=== PATIENT | male | born 2000 | race Caucasian/White ===

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

== ENCOUNTER → 2019-06-01 | Outpatient (CLI) | payer OTHER ==
--- NOTE | 2019-06-01 19:34 | REP ---
Chest x-ray: Three views. History: Cough . Comparison study: No comparison . Findings: The lungs are well inflated and free of infiltrate. The pleural angles are sharp. The heart size is normal. Pulmonary vasculature is not increased. No significant bony abnormality is seen. Impression: Negative chest x-ray. Electronically Signed by Enio Membreno MD 06/01/2019 07:26 P
== END ==
LOC: M LRY 17:40
PROVIDERS: ATTEND Physician Assistant
DX: R05 Cough (principal)

== ENCOUNTER 2020-08-05 08:22 | Emergency (ER) | payer OTHER ==
[~2020-08-05] VITALS: Ht 180.3 cm; Wt 92.2 kg
--- OUTSIDE RECORDS SUMMARY | 2020-08-05 08:27 | CCD ---
Author Author [facility] Organization [facility] Address Unknown Phone Unavailable Care Team Providers Care Photograph Tinter Name Role Phone TURRIN, JOSEPH Unavailable Unavailable TURRIN, JOSEPH Unavailable Unavailable TURRIN, JOSEPH Unavailable Unavailable TURRIN, JOSEPH Unavailable Unavailable KENISHA MARQUEZ Unavailable Unavailable RIVERA, 0000{ Unavailable Unavailable KATHY, B ISABEL CASSIDY Unavailable Unavailable KATHY, B ISABEL CASSIDY Unavailable Unavailable KATHY, B ISABEL CASSIDY Unavailable Unavailable KATHY, B ISABEL CASSIDY Unavailable Unavailable KATHY, B ISABEL CASSIDY Unavailable Unavailable KATHY, B ISABEL CASSIDY Unavailable Unavailable KATHY, B ISABEL CASSIDY Unavailable Unavailable KATHY, B ISABEL CASSIDY Unavailable Unavailable KATHY, B ISABEL CASSIDY Unavailable Unavailable KATHY, B ISABEL CASSIDY Unavailable Unavailable KATHY, B ISABEL CASSIDY Unavailable Unavailable KATHY, B ISABEL CASSIYD Unavailable Unavailable KATHY, B ISABEL CASSIDY Unavailable Unavailable KATHY, B ISABEL CASSIDY Unavailable Unavailable KATHY, B ISABEL CASSIDY Unavailable Unavailable KATHY, B ISABEL CASSIDY Unavailable Unavailable KATHY, B ISABEL CASSIDY Unavailable Unavailable KATHY, B ISABEL CASSIDY Unavailable Unavailable KATHY, B ISABEL CASSIDY Unavailable Unavailable KATHY, B ISABEL CASSIDY Unavailable Unavailable KATHY, B ISABEL CASSIDY Unavailable Unavailable KATHY, B ISABEL CASSIDY Unavailable Unavailable KATHY, B ISABEL CASSIDY Unavailable Unavailable KATHY, B ISABEL CASSIDY Unavailable Unavailable KATHY, B ISABEL CASSIDY Unavailable Unavailable KATHY, B ISABEL CASSIDY Unavailable Unavailable KATHY B ISABEL CASSIDY Unavailable Unavailable KATHY B ISABEL CASSIDY Unavailable Unavailable KATHY, B ISABEL CASSIDY Unavailable Unavailable KATHY, B ISABEL CASSIDY Unavailable Unavailable KATHY, B ISABEL CASSIDY Unavailable Unavailable KATHY, B ISABEL CASSIDY Unavailable Unavailable KATHY, B ISABEL CASSIDY Unavailable Unavailable KATHY, B ISABEL CASSIDY Unavailable Unavailable KATHY, B ISABEL CASSIDY Unavailable Unavailable KATHY B ISABEL CASSIDY Unavailable Unavailable KATHY, B ISABEL CASSIDY Unavailable Unavailable KATHY, B ISABEL MD Unavailable Unavailable KATHY, B ISABEL MD Unavailable Unavailable KATHY, B ISABEL MD Unavailable Unavailable KATHY, B ISABEL MD Unavailable Unavailable KATHY, B ISABEL MD Unavailable Unavailable KATHY, B ISABEL MD Unavailable Unavailable KATHY, B ISABEL MD Unavailable Unavailable KATHY, B ISABEL MD Unavailable Unavailable KATHY, B ISABEL MD Unavailable Unavailable KATHY, B ISABEL MD Unavailable Unavailable KATHY, B ISABEL MD Unavailable Unavailable KATHY, B ISABEL MD Unavailable Unavailable KATHY, B ISABEL MD Unavailable Unavailable KATHY, B ISABEL MD Unavailable Unavailable KATHY, B ISABEL MD Unavailable Unavailable KATHY, B ISABEL MD Unavailable Unavailable KATHY, B ISABEL MD Unavailable Unavailable KATHY, B ISABEL MD Unavailable Unavailable KATHY, B ISABEL MD Unavailable Unavailable KATHY, B ISABEL MD Unavailable Unavailable KATHY, B ISABEL MD Unavailable Unavailable KATHY, B ISABEL MD Unavailable Unavailable KATHY, B ISABEL MD Unavailable Unavailable KATHY, B ISABEL MD Unavailable Unavailable KATHY, B ISABEL MD Unavailable Unavailable KATHY, B ISABEL MD Unavailable Unavailable KATHY, B ISABEL MD Unavailable Unavailable Re-disclosure Warning The records that you are about to access may contain information from federally-assisted alcohol or drug abuse programs. If such information is present, then the following federally mandated warning applies: This information has been disclosed to you from records protected by federal confidentiality rules (42 CFR part 2). The federal rules prohibit you from making any further disclosure of this information unless further disclosure is expressly permitted by the written consent of the person to whom it pertains or as otherwise permitted by 42 CFR part 2. A general authorization for the release of medical or other information is NOT sufficient for this purpose. The Federal rules restrict any use of the information to criminally investigate or prosecute any alcohol or drug abuse patient.The records that you are about to access may contain highly sensitive health information, the redisclosure of which is protected by Article 27-F of the [facility] Public Health law. If you continue you may have access to information: Regarding HIV / AIDS; Provided by facilities licensed or operated by the [facility] Office of Mental Health; or Provided by the [facility] Office for People With Developmental Disabilities. If such information is present, then the following [facility] mandated warning applies: This information has been disclosed to you from confidential records which are protected by state law. State law prohibits you from making any further disclosure of this information without the specific written consent of the person to whom it pertains, or as otherwise permitted by law. Any unauthorized further disclosure in violation of state law may result in a fine or retirement sentence or both. A general authorization for the release of medical or other information is NOT sufficient authorization for further disc losure. Encounters Encounter Providers Location Date Indications Data Source(s ) ( in Healthcare facility) Attender: NICOLAS CHAVEZ MDAdmitter: ISABEL CHAVEZ MD 04/29/2020 05:48:00 AM EST - 04/29/2020 06:06:0 0 PM [facility] Outpatient Attender: ISABEL CHAVEZ MDAdmitter: ISABEL Ruiz MD 04/29/2020 05:48:00 AM EST - 04/29/2020 06:06:00 PM EST LABRAL TEAR LEFT HIP M24.152 [facility] LABRAL TEAR LEFT HIP M24.152 Patient discharged. Outpatient Attender: ISABEL CHAVEZ MD 04/29/2020 05:48:00 AM [facility] Outpatient Attender: 0000{ [place] 04/24/2020 09:12:00 AM E [facility] Outpatient Attender: ISABEL CHAVEZ MD 04/24/2020 09:12:00 AM EST LABRAL TEAR [facility] LABRAL TEAR Outpatient [facility] [place] 04/24/2020 08:50:0 0 AM EST [facility] Outpatient Attender: GLENDY MARQUEZ 020 01:26:00 PM EDT - 12/16/2019 02:26:00 PM EDT [facility] Outpatient 09/04/2019 10:05:00 PM EDT [facility] Emergency Attender: JOSEPH MIGUEL 2019 09:32:00 PM EDT - 09/05/2019 01:44:00 AM EDT [facility] Patient discharged. Insurance Providers Payer name Policy type / Coverage type Policy ID Covered republican ID Covered republican's relationship to kemp Policy Kemp Plan Information [facility] ACTIVE DUTY [id number] SP [id number] [facility] [id number] S [id number] [facility] HUMANA - O/P [id number] 18 [id number] ANSI-Commercial [id number] SELF PAY ONLY [id number] ACTIVE DUTY [id number] Problems, Conditions, and Diagnoses Code Display Name Description Problem Type Effective Dates Data Source(s) L17525 Pain in left hip Pain in left hip Diagnosis 12/16/2019 01 :26:00 PM EDT [facility] [id number] Nicotine dependence, cigarettes, uncompl icated Nicotine dependence, cigarettes, uncomplicated Diagnosis 09/04/2019 09:32:00 PM EDT [facility] A0811 Acute gastroenteropathy due to [place] a gent Acute gastroenteropathy due to [place] agent Diagnosis 09/04/2019 09:32:00 PM EDT [facility] R197 Diarrhea, unspecified Diarrhea, unspecified Diagnosis 09/04/2019 09:32:00 PM EDT [facility] Results ID Date Data Source [id number] 04/30/2020 07:41:[address] [address] NAME: VESTA PERKINS OF : 2000REPORT: OPERATIONPATIENT NUMBER: [id number] STATUS: OF ADMISSION:DATE OF DISCHARGE:ROOM:DATE OF PROCEDURE: 04/29/2020PREOPERATIVE DIAGNOSIS: Left hip labral tear with femoroacetabularimpingement.POSTOPERATIVE DIAGNOSIS: Left hip labral tear with femoroacetabularimpingement.PROCEDURE PERFORMED: Arthroscopy with labral repair and femoral neckosteoplasty.SURGEON: Isabel Chavez MDASSISTANT: None.ANESTHESIA: General endotracheal tube with 1 percent lidocaine and 0.25percent Marcaine local.SPECIMENS: None.TRACTION TIME: 72 minutes.ESTIMATED BLOOD LOSS: Minimal.FLUIDS GIVEN: Crystalloid.BLOOD PRODUCTS: None.DRAINS: Green catheter.GRAFTS: None.IMPLANTS: Arthrex knotless anchors x2.COMPLICATIONS: None.FINDINGS:1. Exam under anesthesia, left hip, limited motion with 120 degrees forward flexion, 20 degrees internal rotation, 6 degrees of external rotation. There was a labral click noted.2. Traction was difficult to obtain, but after capsulotomy normal translation subluxation was obtained.3. Normal ligamentum teres, depths of the acetabulum.4. Anterior superior labral tear in zone II with rim separation.5. Calcific ossicle in the labrum measuring at 3 x 3 mm.6. Minimal overhang of the acetabulum, minimal acetabuloplasty performed.7. There was chondral delamination 1 cm depth into the acetabular rim, all adjacent to the labral tear. The remainder of the cartilage was pristine.8. Repair accomplished with two anchors spaced 6 mm apart. Length of the tear was approximately 10 to 11 mm. There was an excellent suction seal.9. Significant synovitis in peripheral compartment, a large cam lesion removed, femoral neck osteoplasty. 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 There was no true abduction type injury. He initially underwentphysical therapy and injection, which were temporizing and eventually wassent to me. Current signs and symptoms include soreness with activity andoccasional catching, maybe once a day. He was having difficulty withsquatting and circumduction type of activities.Evaluation in the office revealed irritable hip with limited motion withflexion and internal rotation. X-ray revealed 4 mm of joint spaceremaining. He did have a small crossover with a small labral ossicle andan anterior cam lesion. MRA confirmed that he had chondrolabral separationin zone II. Preoperative CT scan revealed a large anterior lateral cam russell labral ossicle. With these findings, it was felt that the patient wouldbenefit from arthroscopy. Options, risks, and benefits were discussed withthe patient, outlined in office note.PROCEDURE IN DETAIL: The patient was identified in the holding area. Lefthip was marked. He was brought to operating room 9. After adequateGeneral endotracheal tube anesthesia was induced, a Green catheter wasplaced. He was then moved to the fracture table with well-padded tractionboots. The well leg was abducted 60 degrees and the operative leg [id number] degrees and flexed 20 degrees. Traction was then applied under C-armguidance, verifying the ability to distract the hip joint. As mentioned,it was somewhat difficult and we were only able to obtain about 4 mm ofdistraction initially.A formal prep and drape was then performed. Diagnostic arthroscopy wasthen begun after restarting the traction. Traction for the case was 72minutes. Bony landmarks were outlined including anterior-superior spine,greater trochanter, and arthroscopic hip portals includi ng anteriortrochanteric portal, posterior trochanteric portal, and anterior portalwere then marked. An extra long 17-gauge spinal needle was placed throughthe anterior trochanteric portal into the hip joint. This was confirmedwith the guidewire. The hip joint was then instilled with 1 percentlidocaine and 0.25 percent Marcaine 40 cc in a 1:1 mixture, which offerednice distraction of the joint, after eliminating the suction seal andplacing the fluid. We now had 1 cm of distraction.The index 4.5 cannula was then placed, followed by the 30-degreearthroscope. There was normal ligament teres, depths of the acetabulum. [id number] scope was exchanged. Posterior spinal needle was placed forfluid egress with outside-in technique and an anterior portal was made withoutside-in technique with a spinal needle, guidewire, and then the trocar. Interportal capsulotomies were then made. Initial visualization revealedthe chondral labral separation in zone II as well as some blistering anddelamination of the chondral surface in that area for a length of about 10to 12 mm and a depth into the acetabulum of about 1 cm. Through theanterior portal this was then debrided. At this point, the labrum wasfound to be and a labral elevator was used to define theseparation. It was about again 10 to 12 mm. There was an ossicle off theacetabular rim. This was removed with a grasper, after releasing the softtissues around. This was about a 3 x 3 mm type ossicle. There is minimaloverhanging of the acetabular rim, which was contoured utilizing themotorized shaver and then the bur. This was burred back to normalacetabular rim.Next, the DALA portal was made with a spinal needle under directvisualization and a 5.0 cannula was placed. The drill guide was thenplaced on the acetabular rim and the first an chor drill hole was made,followed by the anchor which was placed around the labrum and cinched in astandard knotless technique. About 6 mm of posterior to that the secondanchor was deployed. This had the effect of bringing the labrum up to theedge and a third anchor was not indicated. This was checked with a probe. Traction was released. There was excellent suction seal. The hip was thenflexed to 40 degrees *------* compartment synovitis was debrided withmotorized shaver and the ArthroCare coagulation unit. There wassignificant synovitis. A well-defined cam lesion was outlined and removedwith a bur, reforming the minimal head and neck offset. This was performedfor both the anterior portal and anterolateral portal, switching the scopeand the bur as necessary.The hip was *------* removing all debris from the osteoplasty. Portalswere closed with 3-0 nylon and the hip was injected with 40 cc of 0.25percent Marcaine for postoperative analgesia.The patient was extubated and transferred to the recovery room in stablecondition with intact neurovascular exam.Postoperatively, he will be on crutch protected weightbearing for 6 weeksto protect the labral repair. He will be placed on Celebrex for 1 week forheterotopic bone prophylaxis. He will be restricted from the andmell follow up in my office in 1 week for suture removal.DICTATED BY: Isabel Chavez, MDDictated: 04/29/2020 11:41DT: 04/29/2020 11:49Job #: [id number]: [facility] computer generated reports are not confirmed orauthenticated unless they are signed by the providerElectronically Authenticated by:ISABEL CHAVEZ MD On 04/30/2020 07:41 AM EST Name Value Range Interpretation Code Description Data Liberty rce(s) Supporting Document(s) ID Date Data Source [id number] 04/29/2020 01:46:00 PM EST [facility] DATE OF EXAM: 04/29/2020EXAM: Intraopera tive fluoroscopy. INDICATION: left hip arthroscopy FINDINGS/ IMPRESSION:Images were obtained under fluoroscopy for a procedure NOT involving a radiologist. A total of 5 images were obtained showing coned-down images of the hip during arthroscopy. Please reference the clinical notes of the physician performing the procedure regarding findings. Total fluoroscopy time of 24 seconds Professional interpretation performed at [facility] .End of diagnostic report for accession: [id number] Interpreted: Rosi Hargrove MDTranscribed: 04/29/2020 01:45 PMSigned: 04/29/2020 01:46 PM Rosi Hargrove MD [facility] ACC # [id number] BILL # [id number] COR Name Value Range Interpretation Code Description Data Liberty rce(s) Supporting Document(s) ID Date Data Source [id number] 04/24/2020 12:43:00 PM EST [place] Name Value Range Interpretation Code Description Data Liberty rce(s) Supporting Document(s) SARS coronavirus 2 RNA [Presence] in Res piratory specimen by MICHELLE with probe detection [facility] This lab was ordered by [facility] and reported by [employer]. ID Date Data Source [id number] 04/24/2020 12:45:00 PM EST [facility] DATE OF EXAM: 04/24/2020Examination: CT of the left hip CLINICAL HISTORY: Pain evaluate for labral tear Protocol: Multiple, contiguous axial images were obtained through the left hip without intravenous contrast administration. From these axial images, multiplanar reformatted images were reconstructed in the sagittal and coronal planes. In addition, 3-D volume rendering images were also included for evaluation. One or more of the following dose reduction techniques were utilized in effectively lowering the radiation dose for this examination: Automated Exposure Control, Adjustment of the mA and/or kV according to patient size, or Iterative Reconstruction. FINDINGS: There are no findings of a fracture, dislocation or bony destructive lesion. There is a bony bump along the anterolateral aspect between the junction between the head and neck of the proximal femur. This has a cam-type morphology. There is a small ossicle along the anterolateral margin of the roof of the acetabulum. There are no significant osteoarthritic changes of the left hip joint. There are no findings of an abnormal periarticular fluid collection. The muscles of the left hemipelvis and proximal thigh are normal in appearance with no evidence of focal or diffuse atrophy. There is no evidence of distal external iliac or inguinal adenopathy. IMPRESSION:.1. There is a osseous bump at the junction between the proximal neck and head of the left femur compatible with a cam-type morphology.2. There is a small ossicle along the anterolateral lateral aspect of the roof of the left acetabulum which may represent an os acetabulum or an area of heterotopic ossification within the anterosuperior aspect of the labrum. Professional interpretation performed at [facility] .End of diagnostic report for accession: [id number] Interpreted: John Nieves MDTranscribed: 04/24/2020 12:35 PMSigned: 04/24/2020 12:45 PM John Nieves MD [facility] ACC # [id number] BILL # [id number] [facility] Name Value Range Interpretation Code Description Data Liberty rce(s) Supporting Document(s) ID Date Data Source [id number] 04/24/2020 12:45:00 PM [facility] DATE OF EXAM: 04/24/2020Examination: CT of the left hip CLINICAL HISTORY: Pain evaluate for labral tear Protocol: Multiple, contiguous axial images were obtained through the left hip without intravenous contrast administration. From these axial images, multiplanar reformatted images were reconstructed in the sagittal and coronal planes. In addition, 3-D volume rendering images were also included for evaluation. One or more of the following dose reduction techniques were utilized in effectively lowering the radiation dose for this examination: Automated Exposure Control, Adjustment of the mA and/or kV according to patient size, or Iterative Reconstruction. FINDINGS: There are no findings of a fracture, dislocation or bony destructive lesion. There is a bony bump along the anterolateral aspect between the junction between the head and neck of the proximal femur. This has a cam-type morphology. There is a small ossicle along the anterolateral margin of the roof of the acetabulum. There are no significant osteoarthritic changes of the left hip joint. There are no findings of an abnormal periarticular fluid collection. The muscles of the left hemipelvis and proximal thigh are normal in appearance with no evidence of focal or diffuse atrophy. There is no evidence of distal external iliac or inguinal adenopathy. IMPRESSION:.1. There is a osseous bump at the junction between the proximal neck and head of the left femur compatible with a cam-type morphology.2. There is a small ossicle along the anterolateral lateral aspect of the roof of the left acetabulum which may represent an os acetabulum or an area of heterotopic ossification within the anterosuperior aspect of the labrum. Professional interpretation performed at [facility] .End of diagnostic report for accession: [id number] Interpreted: John Nieves MDTranscribed: 04/24/2020 12:35 PMSigned: 04/24/2020 12:45 PM John Nieves MD [facility] # [id number] BILL # [id number] [facility] Name Value Range Interpretation Code Description Data Liberty rce(s) Supporting Document(s) ID Date Data Source [id number] 12/18/2019 12:55:00 [place] [address] PHONE: [phone] FAX: [phone] Name .................. : MADDIE KELLY Leeanna Acct Number.................. : [id number] ROOM. ................. : Number ................... : [id number] Stay type ............. : O/P Discharge Date......... ... : 12/16/19 Admit Date ......... : 12/16/19 Admit Phys .................... : JIMMY BAILEY Date of ....... : 2000 Family Phys ................... : UNKNOWN CO Phone .................. : [phone] Age ................................ : 19 Film# .................. .:[id number] Sex ................................. : M Unsigned transcriptions are preliminary reports and do not represent a medical or legal document INJECTION FOR HIP ARTHROGRAM [id number] COMPLETE:12/16/19 16:08 ARS [id number] REASON FOR EXAM: PAIN FLUO ROSCOPIC EXAMINATION OF THE LEFT HIP FOR ARTHROGRAM: INDICATION: Pain. PROCEDURE: The benefits and risks of the examination were discussed with the patient. The patient has given informed consent for the procedure. A time out was performed confirming the left hip is the proper hip for today's examination. The skin surface was marked using fluoroscopic guidance. The skin was prepped and dressed in normal sterile fashion. Superficial and deep Lidocaine administration was performed with a 25-gauge needle. A 22- gauge spinal needle was then placed and advanced under fluoroscopic guidance. The needle was passed into the joint space at which time iodinated contrast was administered to confirm proper placement. Approximately 5 cc of iodinated contrast was administered. Once the proper placement was confirmed, approximately 10 cc of 1:200 Gadolinium solution was administered. The needle was then removed. The skin was cleansed and bandaged. No complications were experienced during the procedure. 3 images were obtained and 7 seconds of fluoroscopy were utilized. Examination dictated by VAMSI Ramirez. Examination was reviewed with Naima Larson MD, radiologist at the time of this dictation. Electronically Reviewed and Signed By EDGAR CHAN MD , 12/18/19 12:55, GMM Page 1 of [address] [place] [address] PHONE: [phone] FAX: [phone] Name .................. : MADDIE Durán Acct Number.................. : [id number] ROOM. ................. : Number ................... : [id number] Stay type ............. : O/P Discharge Date......... ... : 12/16/19 Admit Date ......... : 12/16/19 Admit Phys .................... : JIMMY AVALOS Date of ....... : 2000 Family Phys ................... : UNKNOWN CO Phone .................. : [phone] Age ................................ : 19 Film# .................. .:[id number] Sex .................... ............. : M Unsigned transcriptions are preliminary reports and do not represent a medical or legal document INJECTION FOR HIP ARTHROGRAM [id number] COMPLETE:12/16/19 16:08 ARS 03111 REASON FOR EXAM: PAIN Transcribe Initials: DZ , Transcribe Date: 12/16/19 17:27, Dictation Date: Copy for: MARQUEZ GLENDY KENISHA Copy for: [facility] REC Page 2 of 2 Name Value Range Interpretation Code Description Data Liberty rce(s) Supporting Document(s) ID Date Data Source [id number] 12/17/2019 08:28:00 AM EDT [facility] [address] [place] [address] PHONE: [phone] FAX: [phone] Name .................. : MADDIE Durán Acct Number.................. : [id number] ROOM. ................. : Number ................... : [id number] Stay type ............. : O/P Discharge Date......... ... : 12/16/19 Admit Date ......... : 12/16/19 Admit Phys .................... : JIMMY AVALOS Date of ....... : 2000 Family Phys ................... : UNKNOWN CO Phone .................. : [phone] Age ................................ : 19 Film# .................. .:[id number] Sex ................................. : M Unsigned transcriptions are preliminary reports and do not represent a medical or legal document MRI LOWER EXT ANY JT W CONT [id number] COMPLETE:12/16/19 14:29 RLH [id number] (REASON FOR PROCESS: PAIN MRI STUDY OF THE LEFT HIP: COMPARISON: None available. FINDINGS: MRI imaging of the left hip was performed status post fluoroscopically guided injection. Contour irregularity is noted along the superior aspect of the articular surface of the acetabulum. The labrum appears intact. No signal abnormalities are detected within the bony structures of the left hip. No acute findings are seen within the pelvis or incidentally within the right hip. IMPRESSION: Contour irregularity is noted along the articular cartilage along the superior aspect of the acetabulum. This could reflect degenerative osteoarthritic changes or possibly be related to prior trauma. No labral tear identified. Electronically Reviewed and Signed By Everardo Cooper MD , 12/17/19 08:28, RNNicolette Transcribe Initials: DZ , Transcribe Date: 12/17/19 00:54, Dictation Date: Copy for: JIMMY DE Copy for: [address] [place] [address] REC Page 1 of 1 Name Value Range Interpretation Code Description Data Liberty rce(s) Supporting Document(s) ID Date Data Source [id number] 09/04/2019 09:32:00 PM EDT [facility] 1 OrderSheet [facility] Emergency Department [address] [place] [address] Phone #: ext- [phone] 09/04/2019 21:24 Patient: ROBIN PERKINS Sex: M : 2000 Age: 19yWEIGHT:95.2 kg (M) HEIGHT:71 inches (S) BMI:29.3ALLERGIES: NoneCHIEF COMPLAINT: vomiting, diarrheaDIAGNOSIS: GastroenteritisLAB ORDERSOrder Description Priority Entered Acknowledged InitialedLA[facility] w [facility] STAT 21:48 09/04/2019 21:50 Ina Arce Riccardo Tiffany R.N. M.D.;CMP STAT 21:48 09/04/2019 21:50 Ina Arce Riccardo Tiffany R.N. M.D.;Lipase STAT 21:48 09/04/2019 21:50 Ina Arce Riccardo Tiffany R.N. M.D.;Influenza Nasal A B STAT 21:48 09/04/2019 21:50 Ina Arce Riccardo Tiffany R.N. M.D.;Rapid Strep Screen STAT 21:48 09/04/2019 21:50 Ina Arce Riccardo Tiffany R.N. M.D.;FLU PANEL STAT 21:48 09/04/2019 21:50 Ina Arce Riccardo Tiffany R.N. M.D.;CORONAVIRUS STAT 21:48 09/04/2019 21:50 ClaudeCOVID-19 Joseph Miguel R.N., M.D.;Blood Culture STAT 21:49 09/04/2019 21:51 myrna Arce0m X2 (Sched Joseph Miguel R.N.21:49 09/04/2019) Rony;Blood Culture STAT 21:49 09/04/2019 Ack'd: 22:03 22:07 myrna Arce0m X2 (Sched Joseph Miguel Tiffany Tiffany R.N.21:59 09/04/2019) Rony; R.N.Lactic Acid STAT 21:49 09/04/2019 21:51 Ina Arce Riccardo Tiffany R.N. M.D.; 2 OrderSheet [facility] Emergency Department [address] [place] [address] Phone #: ext- [phone] 09/04/2019 21:24 Patient: ROBIN PERKINS Sex: M : 2000 Age: 19yDIAGNOSTIC STUDY ORDERSOrder Description Priority Entered Acknowledged InitialedChest 2 View STAT 21:49 09/04/2019 21:50 Claude(Oxygen?(No)) Joseph Miguel R.N., M.D.; Reason for Study: Cough, FeverMEDICATION/IV/DRIP/FLUID ORDERSOrder Description Priority Entered Acknowledged InitialedNS IV 1000 mL 21:49 09/04/2019 Ack'd: 22:03 22:07 Claude,Bolus: : Bolus 1000 Joseph Miguel Tiffany Tiffany R.N.mL (X1) M.DDewey; R.N.Zofran IVP 8 mg 21:49 09/04/2019 Ack'd: 22:03 22:07 Ina Arce Riccardo Matthews, Tiffany Tiffany R.N. M.D.; R.N.NS IV 1000 mL 23:43 09/04/2019 23:48 SegunBolus: : Bolus 1000 Joseph Miguel (X1) MDeweyDDewey;GENERAL ORDERSOrder Description Priority Entered Acknowledged InitialedNPO 21:48 09/04/2019 21:50 Ina Arce Riccardo Tiffany R.N. M.D.;Saline Lock 21:48 09/04/2019 21:50 Ina Arce Riccardo Tiffany R.N. M.D.;[Electronically signed by Ember Cast R.N. (01:44 09/05/2019)][Electronically signed by Joseph Miguel M.D. (01:53 09/05/2019)][Electronically locked by Ember Cast R.N. (01:44 09/05/2019)] Name Value Range Interpretation Code Description Data Liberty rce(s) Supporting Document(s) ID Date Data Source [id number] 09/04/2019 09:32:00 PM EDT [facility] 1 Medication Reconciliation Report [facility] Emergency Department [address] [place] [address] Phone #: ext- [phone] 09/04/2019 21:24 Patient: ROBIN PERKINS Sex: M : 2000 Age: 19yWeight: 95.2 kgHeight/Length: 71 in.BMI: 29.3ALLERGIES: NoneThe patient's Home Medications are listed below:NONE.The source(s) of the original Home Medication information:Not obtained.The following Medications were given to the patient in the Emergency Department:Zofran [IVP] IVP 8 mg, administered: 09/04/2019 10:01:00 PMNS [IV] IV Fluids bolus 1000 mL wide open, administered: 09/04/2019 10:02:00 PMNS [IV] IV Fluids bolus 0, then 1000 mL/hr, administered: 09/04/2019 11:48:00 PMThe following Medications were prescribed to the patient:Zofran 4 mg tablet Take 1 tablet four times a day as needed for 4 days -- Dispense 16 tablet. Refills: 0.Substitution permitted.Pharmacy - REPLACED BY [facility] - [id number] ; [place] [address]. . -- Joseph Miguel M.D. Name Value Range Interpretation Code Description Data Liberty rce(s) Supporting Document(s) ID Date Data Source [id number] 09/04/2019 09:32:00 PM EDT [facility] 1 Medication Administration Record [facility] Emergency Department [address] [place] [address] Phone #: ext- [phone] 09/04/2019 21:24 Patient: ROBIN PERKINS Sex: M : 2000 Age: 19yWeight: 95.2 kgHeight/Length: 71 inBMI: 29.3ALLERGIES: None Date/Time Medication Administered Medication OrderedStart NS [IV] NS IV 1000 mL Bolus: : Bolus 628114:02 09/04/2019 Dose: IV Fluids mL (X1)Rosamaria Arce R.N. Bolus: 1000 mL wide open---- Dispensed: 1000 mL bagStop Site: #1 right AC01:43 09/05/2019Ember Cast R.N.Given ZOFRAN [IVP] (ONDANSETRON HCL) Zofran IVP 8 mg22:01 09/04/2019 Dose: 8 mg IVPMattRosamaria naidu R.N. Site: #1 right ACStart NS [IV] NS IV 1000 mL Bolus: : Bolus [id number] 09/04/2019 Dose: IV Fluids mL (X1)Ember Cast R.N. Rate: 1000 mL/hr over 1 hour(s)---- Dispensed: 1000 mL bagStop Site: #1 right AC01:43 09/05/2019Ember Cast R.N. Name Value Range Interpretation Code Description Data Liberty rce(s) Supporting Document(s) ID Date Data Source [id number] 09/04/2019 09:32:00 PM EDT [facility] 1 General Instructions [facility] Emergency Department [address] [place] [address] Phone #: ext- [phone] 09/04/2019 21:24 Patient: ROBIN PERKINS Sex: M : 2000 Age: 19yAcute norovirus gastroenteritis (R/O COVID-19). No volume depletion, dehydration or hypotension.INSTRUCTIONSAlternate Tylenol (Acetaminophen) or Motrin (Ibuprofen) for fever, temperature greater than 102 degreesorally. Take according to label instructions. No strenuous activity until released. Return to work whenreleased by doctor.Drink plenty of fluids. Avoid alcohol and NSAIDS. NSAIDS include aspirin, ibuprofen (Advil) and naproxen(Aleve). Avoid fatty, fried/greasy, lactose-containing (such as milk, cheese and ice cream), salty and spicyfoods. No alcohol. Do not smoke.(PLEASE STAY IN ISOLATION PER CUSHING PROTOCOLS UNTIL RESULTS OF COVI-19 TESTARE BACK).Warnings: Further evaluation is necessary. It is very important to follow up with a healthcare provider.GENERAL WARNINGS: Return or contact your physician immediately if your condition worsens orchanges unexpectedly, if not improving as expected, or if other problems arise. SPECIFICALLY, return ifyou develop pain in the abdomen, pelvis, back or shoulder, fever, vomiting, the inability to keep fluidsdown, blood in vomitus, blood in diarrhea or lightheadedness.Your Current Medications: .No home medication.Prescription Medications:Zofran 4 mg tablet Take 1 tablet four times a day as needed for 4 days -- Dispense 16 tablet. Refills: 0.Substitution permitted.Pharmacy - [facility] [id number] [facility] ; [place] [address]. .Follow-up:Return to the em ergency department as needed. Follow up with your healthcare provider in two dayseven if well. Call for an appointment. Reason for referral: evaluation and treatment. Summary of careprovided to patient via paper.Understanding of the discharge instructions verbalized by patient. Expected course of illness, dischargeinstructions, activity level, diet, prescriptions x1, follow-up appointment and risks and benefits of treatmentreviewed with patient and understanding verbalized. Agrees to plan of care. 2 General Instructions [facility] Emergency Department [address] [place] [address] Phone #: ext- [phone] 09/04/2019 21:24 Patient: ROBIN PERKINS Sex: M : 2000 Age: 19y ADDITIONAL INFORMATIONViral Gastroenteritis (Adult)Gastroenteritis is commonly called the "stomach flu," although it has nothing to do with influenza. It ismost often caused by a virus that affects the stomach and intestinal tract and usually lasts from 2 to 7days. Common viruses causing gastroenteritis include norovirus, rotavirus, and hepatitis A. Non- viralcauses of gastroenteritis include bacteria, parasites, and toxins.The danger from repeated vomiting or diarrhea is dehydration. This is the loss of too much fluid fromthe body. When this occurs, body fluids must be replaced. Antibiotics don't help with this illnessbecause it is usually viral. Simple home treatment will be helpful.Symptoms of viral gastroenteritis may include: Watery, loose stools Stomach pain or abdominal cramps Fever and chills Nausea and vomiting 3 General Instructions [facility] Emergency Department [address] [place] [address] Phone #: ext- [phone] 09/04/2019 21:24 Patient: ROBIN PERKINS Sex: M : 1999 Age: 19y Loss of bowel control HeadacheHome careGastroenteritis is transmitted by contact with the stool or vomit of an infected person. This can occurfrom person to person or from contact with a contaminated surface.Follow these guidelines when caring for yourself at home: If symptoms are severe, rest at home for the next 24 hours or until you are feeling better. Wash your hands with soap and water or use alcohol-based technical delivery manager to prevent the spread of infection. Wash your hands after touching anyone who is sick. Wash your hands or use alcohol-based technical delivery manager after using the toilet and before meals. Clean the toilet after each use.Remember these tips when preparing food: People with diarrhea should not prepare or serve food to others. When preparing foods, wash your hands before and after. Wash your hands after using cutting boards, countertops, knives, or utensils that have been in contact with raw food. Dry your hands with a single use towel. Keep uncooked meats away from cooked and [id number]-jwf foods.MedicineYou may use acetaminophen or NSAID medicines like ibuprofen or naproxen to control fever unlessanother medicine was given. If you have chronic liver or kidney disease, talk with your healthcareprovider before using these medicines. Also talk with your provider if you've had a stomach ulceror gastrointestinal bleeding. Don't give aspirin to anyone under 18 years of age who is ill with a fever.It may cause severe liver damage. Don't use NSAIDS is you are already taking one for anothercondition (like arthritis) or are on aspirin (such as for heart disease or after a stroke).If medicine for vomiting or diarrhea are prescribed, take these only as directed. Nausea and diarrheamedicines are generally OK unless you have bleeding, fever, or severe abdominal pain.DietFollow these guidelines for food: 4 General Instructions [facility] Emergency Department [address] [place] [address] Phone #: ext- [phone] 09/04/2019 21:24 Patient: ROBIN PERKINS Sex: M : 2000 Age: 19y Water and liquids are important so you don't get dehydrated. Drink a small amount at a time or suck on ice chips if you are vomiting. If you eat, avoid fatty, greasy, spicy, or fried foods. Don't eat dairy if you have diarrhea. This can make diarrhea worse. Avoid tobacco, alcohol, and caffeine which may worsen symptoms.During the first 24 hours (the first full day), follow the diet below: Beverages. Sports drinks, soft drinks without caffeine, bert david, mineral water (plain or flavored), decaffeinated tea and coffee. If you are very dehydrated, sports drinks aren't a good choice. They have too much sugar and not enough electrolytes. In this case, commercially available products called oral rehydration solutions, are best. Soups. Eat clear broth, consomm, and bouillon. Desserts. Eat gelatin, ice pops, and fruit juice bars.During the next 24 hours (the second day), you may add the following to the above: Hot cereal, plain toast, bread, rolls, and crackers Plain noodles, rice, mashed potatoes, chicken noodle or rice soup Unsweetened canned fruit (avoid pineapple), bananas Limit fat intake to less than 15 grams per day. Do this by avoiding margarine, butter, oils, mayonnaise, sauces, gravies, fried foods, peanut butter, meat, poultry, and fish. Limit fiber and avoid raw or cooked vegetables, fresh fruits (except bananas), and bran cereals. Limit caffeine and chocolate. Don't use spices or seasonings other than salt. Limit dairy products. Avoid alcohol.During the next 24 hours: Gradually resume a normal diet as you feel better and your symptoms improve. If at any time it starts getting worse again, go back to clear liquids until you feel better.Follow-up careFollow up with your healthcare provider, or as advised. Call your provider if you don't get better yehnow40 hours or if diarrhea lasts more than a week. Also follow up if you are unable to keep down liquids 5 General Instructions [facility] Emergency Department [address] [place] [address] Phone #: ext- [phone] 09/04/2019 21:24 Patient: ROBIN PERKINS Sex: M : 2000 Age: 19yand get dehydrated. If a stool (diarrhea) sample was taken, call as directed for the results.Call [phone] if any of these occur: Trouble breathing Chest pain Confused Severe drowsiness or trouble awakening Fainting or loss of consciousness Rapid heart rate Seizure Stiff neckWhen to seek medical adviceCall your healthcare provider right away if any of these occur: Abdominal pain that gets worse Continued vomiting (unable to keep liquids down) Frequent diarrhea (more than 5 times a day) Blood in vomit or stool (black or red color) Dark urine, reduced urine output, or extreme thirst Weakness or dizziness Drowsiness Fever of 100.4F (38C) or higher, or as directed by your healthcare provider Jay chapa [phone] The [employer]. [address] [place] [address]. All rights reserved. This information is not intended as asubstitute for professional medical care. Always follow your healthcare professional's instructions.Fever Control (Adult)A fever is a normal reaction of your body to an illness. The temperature itself usually isn't harmful. It 6 General Instructions [facility] Emergency Department [address] [place] [address] Phone #: ext- [phone] 09/04/2019 21:24 Patient: ROBIN PERKINS Sex: M : 2000 Age: 19yactually helps your body fight infections. You don't need to treat a fever unless you feel veryuncomfortable.Home careFollow these tips to take care of yourself at home: If you feel warm, check your temperature. Dress in light clothing. This will help you lose extra body heat through your skin. The fever will go up if you wear extra layers or wrap in blankets. Fever causes your body to lose water through evaporation. Drink plenty of fluids. These include water, juice, clear sodas, bert david, or lemonade.Fever medicinesYou can take acetaminophen every 4 to 6 hours if: You feel very uncomfortable Your oral temperature is 100.4F (38C) or higherIf you can't take or keep down oral medicine, ask your pharmacist for acetaminophen suppositories.You don't need a prescription for these.If the fever doesn't get better within 1 hour after you take acetaminophen, take ibuprofen. If thisworks, keep taking the ibuprofen every 6 to 8 hours.If you have chronic liver or kidney disease, talk with your healthcare provider before taking thesemedicines. Also talk with your provider if you ever had a stomach ulcer or GI (gastrointestinal)bleeding.If either medicine alone doesn't keep the fever down, you may switch off between the 2 medicinesevery 3 to 4 hours. But do this only if your healthcare provider has told you to. For example, takeibuprofen. Wait 3 hours. Then take acetaminophen. Wait 3 hours. Take ibuprofen, and so on. Followyour provider's instructions exactly.Don't give aspirin to anyone younger than age 19 who is ill with a fever. Aspirin can cause seriousside effects such as liver damage and Linh syndrome. Although rare, Linh syndrome is a veryserious illness usually found in children younger than age 15. The syndrome is closely linked to theuse of aspirin or aspirin-containing medicine during viral infection.Follow-up careFollow up with your healthcare provider if you don't get better after 48 hours. 7 General Instructions [facility] Emergency Department [address] [place] [address] Phone #: ext- [phone] 09/04/2019 21:24 Patient: ROBIN PERKINS Sex: M : 2000 Age: 19yWhen to seek medical adviceCall your healthcare provider right away if any of these occur: Fever, as directed by your healthcare provider, or: o Fever of 100.4F (38C) or above lasting for 24 to 48 hours o Fever lasting more than 3 days, even without other symptoms o Fever that happens af ter visiting a foreign country o Fever that happens within a month after visiting a country with malaria. Malaria is a serious illness. A fever can still be malaria even if you took medicine to prevent it. The medicine does not work in all cases. Confusion or trouble thinking Headache or stiff neck Flat, small, purplish red spots on your skin Low blood pressure Fast heart rate Fast (rapid) breathing You are You just had surgery, another medical procedure, or were just discharged from the hospital Use of medicines that suppress the immune system (immunosuppressants). These include Prednisone, cancer medicines, and organ transplant rejection medicines. If you are not sure about whether your medicines suppress your immune system, ask your healthcare provider.Call 911Someone should call 911 if you: Are having trouble breathing or shortness of breath Are unresponsiveImportant reminderCall your healthcare provider if you get a fever after visiting a place where infectious diseases arecommon. Many people shrimp picker a cold or other virus while traveling. This usually goes away without aproblem. But, some places have more serious diseases. Fever with certain other symptoms may 8 General Instructions [facility] Emergency Department [address] [place] [address] Phone #: ext- [phone] 09/04/2019 21:24 Patient: ROBIN PERKINS Sex: M : 2000 Age: 19ymean you have a serious illness. Symptoms to watch for include diarrhea, skin rashes, insect bites,and skin boils, or infections. Your provider may ask you: What you did on your trip How long you were there Where you stayed (hotel, lovelock house, tent) What you ate and drank If you were bitten by insects or other bugs If you swam in freshwater If you had sex or got a tattoo or piercing while you were thereCheck the [facility] to get more information about specific infectious diseases in the areas you havetraveled. [phone] The [employer]. [address] [place] [address], [place] [address]. All rights reserved. This information is not intended as asubstitute for professional medical care. Always follow your healthcare professional's instructions. You have been given the following additional information: Gastroenteritis, Viral (Adult) Fever Control (Adult) No strenuous activity until released. Return to work when released by doctor.(Electronically signed by Joseph Miguel M.D. 09/05/2019 01:53) Name Value Range Interpretation Code Description Data Liberty rce(s) Supporting Document(s) ID Date Data Source [id number] 09/04/2019 09:32:00 PM EDT [facility] 1 Clinical Report - Nurses [facility] Emergency Department [address] [place] [address] Phone #: ext- [phone] 09/04/2019 21:24 Patient: ROBIN PERKINS Sex: M : 2000 Age: 19yTRIAGEArrived by private vehicle. Historian: patient.Triage time: 21:25 09/04/2019. Acuity: LEVEL 3.Chief Complaint: FEVER and (vomitng, diarrhea,cough).This started today. ( seen by sick call this am for a cough and vomiting, but fever started this evening,Covid hotline told him to be seen). The patient has had a cough. ( recently visited his grandfather whowas in the hospital in [place] with all of the symptoms and was just tested yesterday for covid). --21: Ember Cast R.N.21:25 09/04/19. BP: 140/88. MAP: 105. HR: 109. RR: 18. O2 saturation: 98% on room air. Temp: 100.4 F.Pain level now: 08/26. --21:31 09/04/19 Ember Cast R.N.Weight: 95.2 kg measured. Height/Length: 71 inches Per Patient. BMI: 29.3. --21:24 09/04/19 Ember Cast R.N.MedicationsNone. --21:27 09/04/19 Ember Cast R.N.AllergiesNone. --21:27 09/04/19 Ember Cast R.N.PROBLEMS:None. --21:28 09/04/19 Ember Cast R.N.ADDITIONAL SURGERIES:None. --21:28 09/04/19 Embre Cast R.N.HistoryPAST MEDICAL HX: Immunizations: up-to-date.SOCIAL HX: Current every day heavy tobacco smoker (cigarette)- less than 1 pack per day. No alcoholuse or drug use. The patient has had contact with a sick family member with suspected. (COVID). Thepatient was offered HIV testing but declined. Patient education was provided. The patient has not traveledoutside the [place]Infectious disease exposure: (recent visit with grandfather in [place] who has all the covid symptoms andwas tested yesterday).SELF HARM ASSESSMENT: Self harm assessment was performed. The patient answered "no" to thequestion(s) "Have you recently felt down, depressed, or hopeless?", "Do you have thoughts of harming orkilling yourself?", "Do you have a plan for harming or killing yourself?", "Have you recently had thoughts 2 Clinical Report - Nurses [facility] Emergency Department [address] [place] [address] Phone #: ext- [phone] 09/04/2019 21:24 Patient: ROBIN PERKINS Sex: M : 2000 Age: 19y about harming or killing others?", "Do you have any dangerous items in your possession?", "Have you noticed less interest or pleasure in doing things?", "Are you here because you tried to hurt yourself?" and "Have you ever tried to hurt yourself before today?". ABUSE ASSESSMENT: Abuse assessment. Abuse denied. No report of abuse. NUTRITIONAL RISK ASSESSMENT: The nutritional risk assessment revealed no deficiencies. FUNCTIONAL ASSESSMENT: Functional assessment: no impairments noted. LEARNING NEEDS ASSESSMENT: The learning needs assessment revealed no barriers. FALL RISK ASSESSMENT: Fall risk assessment completed. No risk factors identified. SKIN INTEGRITY ASSESSMENT: Skin integrity risk assessment completed. No skin integrity risk identified. --21:31 09/04/19 Ember Cast R.N. Interventions Identification band on patient. To treatment room. Advanced care plan discussed with patient. Patient does not have advanced directive. --21:31 09/04/19 Ember Cast R.N.PHYSICAL FAQWCQIBUP68:34 09/04/19. ( pt was near his grandpa, who was tested yesterday for covid 19, unsure of the results.pt has fever, cough, n/v/d. pt st on monitor.).GENERAL / NEURO / PSYCH: Alert. Oriented X 4.HEENT: Pupils equal, round and reactive to light.RESPIRATORY: Respirations not labored.CVS: Cardiac rhythm: sinus tachycardia.GI / : Emesis noted. He has had intermittent episodes of nausea. Abdomen soft. Abdominaltenderness.SKIN: Skin is warm and dry. --21:44 09/04/19 Rosamaria Arce R.N.NURSING PROGRESS NOTESTwo patient identifiers checked. Call light placed in reach. Bed placed in lowest position. Brakes of bedon. --21:31 09/04/19 Ember Cast R.N. 21:34 09/04/2019 Site #1 started via IV in the right antecubital space with an 20g angiocath, with aseptic technique and good blood return; one attempt. Saline lock flushed with 10 mL saline. --21:44 09/04/19 Rosamaria Arce R.N. ( laborer demolition drawing blood at bedside.). --21:59 09/04/19 Sierra Starks R.N. 22:01 09/04/2019 Zofran (Ondansetron HCl) IVP 8 mg given over 5 minute(s) via site #1. Allergies verified and confirmed 5 rights. IV patency established. IV site checked: no pain, redness, or swelling. IV flushed 3 Clinical Report - Nurses [facility] Emergency Department [address] [place] [address] Phone #: ext- [phone] 09/04/2019 21:24 Patient: ROBIN PERKINS Sex: M : 2000 Age: 19y thoroughly pre- and post-medication administration. Information reviewed with patient. Verbalizes understanding. --22:07 09/04/19 Rosamaria Arce R.N. 22:02 09/04/2019 Started bag #1 1000 mL IV Fluids NS; bolus of 1000 mL wide open via site #1. Allergies verified and confirmed 5 rights. IV patency established. IV site checked: no pain, redness, or swelling. IV flushed thoroughly pre- and post-medication administration. Information reviewed with patient. Verbalizes understanding. --22:07 09/04/19 Rosamaria Arce R.N. 23:48 09/04/2019 Started bag #1 1000 mL IV Fluids NS; at 1000 mL/hr over 1 hour(s) via site #1. Allergies verified and confirmed 5 rights. IV patency established. IV site checked: no pain, redness, or swelling. IV flushed thoroughly pre- and post-medication administration. Information reviewed with patient. Verbalizes understanding. --23:48 09/04/19 Ember Cast R.N. 23:49 09/04/19. BP: 132/82. MAP: 98. HR: 88. RR: 18. O2 saturation: 99%. Temp: 98.6 F. Pain level now: 07/29. --23:49 09/04/19 Ember Cast R.N. The patient reports no complaints and he is calm and resting quietly. --23:49 09/04/19 Ember Cast R.N. 01:43 09/05/2019 IV Fluids NS via IV site #1 Discontinued: completed. Total amount infused: 1000 mL. IV patency established. IV site checked: no pain, redness, or swelling. IV flushed thoroughly. --01:43 09/05/19 Ember Cast R.N. 01:43 09/05/2019 IV Fluids NS via IV site #1 Discontinued: completed. Total amount infused: 1000 mL. --01:43 09/05/19 Ember Cast R.N.DISPOSITION / DISCHARGE Departure time: 01:39 09/05/2019. Condition at departure: stable. No learning barriers present. Discharge instructions provided and reviewed with the patient. Reviewed warnings. Reviewed medication(s). Treatments reviewed. Reviewed referrals. Activity restrictions reviewed. Work note given. Verbalized understanding. Written instructions provided in Swedish. The patient was discharged by the physician. He was discharged home and accompanied by family. He left ambulatory and via private vehicle. Family member driving. ( pt. 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 he has been given a phone number for [employer] to follow up with [employer] results). --01:40 09/05/19 Ember Cast R.N. 01:38 09/05/19. BP: 134/78. MAP: 96. HR: 84. RR: 16. O2 saturation: 100%. Temp: 98.5 F. Pain level now: 0/10. --01:40 09/05/19 Ember Cast R.N.Locked/Released at 09/05/2019 01:44 by Ember Cast R.N. 4 Clinical Report - Nurses [facility] Emergency Department [address] [place] [address] Phone #: ext- [phone] 09/04/2019 21:24 Patient: ROBIN PERKINS Sex: M : 2000 Age: 19y Name Value Range Interpretation Code Description Data Liberty rce(s) Supporting Document(s) ID Date Data Source [id number] 09/04/2019 09:32:00 PM EDT [facility] 1 Clinical Report - Physicians/Mid Levels [facility] Emergency Department [address] [place] [address] Phone #: ext- [phone] 09/04/2019 21:24 Patient: ROBIN PERKINS Sex: M : 2000 Age: 19y Time Seen: 21:35 09/04/2019; initial patient contact. Arrived- By private vehicle. Historian- patient. Disposition decision: 01:19 09/05/2019.HISTORY OF PRESENT ILLNESS Chief Complaint: VOMITING and DIARRHEA. No recent travel. He has had moderate nausea. He has had moderate vomiting. The vomiting has occurred several times. No blood-tinged emesis or frankly bloody emesis. He has had moderate diarrhea. This has occurred several times. It has b een watery. No bloody, mucous containing or blood-tinged diarrhea. No black stools, bloody stools, abdominal pain, constipation or flank pain. No history of possible bad food exposure or change in routine. Has not recently been camping or on antibiotics. He has had contact with a sick family member. They have had similar symptoms. This started today and is still present. It has been constant. The illness is described as moderate. (pt visited grandfather who was hospitalized in [facility] for URI, SOB, fever; pt returned on Monday and grandfather was tested for Covid-19 yesterday and pt was told to self-isolate; his Sx's started today but he has had a mild cough for last week). Similar symptoms previously. Patient has had similar symptoms occasionally. Recent medical care: Not recently seen/assessed.REVIEW OF SYSTEMSThe patient has had fever of 101 F, muscle aches and a headache and mild sore throat. No difficulty withurination, dark urine, dizziness, chest pain or difficulty breathing. No exc essive urination, skin rash,jaundice, back pain or fainting episodes. No blurred vision. The patient has had a mild nonproductivecough. All other systems reviewed and are negative.PAST HISTORYSee nurses notes. Problems: Sick Contact. None. Additional Surgeries: None. Medications: None. Allergies: 2 Clinical Report - Physicians/Mid Levels [facility] Emergency Department [address] [place] [address] Phone #: ext- [phone] 09/04/2019 21:24 Patient: ROBIN PERKINS [facility]#: [id number] Sex: M : 2000 Age: 19y None.SOCIAL HISTORYHeavy tobacco smoker- less than 1 pack per day. No alcohol use or drug use.ADDITIONAL NOTESThe nursing notes have been reviewed with agreement regarding the chief complaint, HPI, ROS, PMH andpatient medications and allergies.PHYSICAL EXAMVital Signs: 09/04/2019 21:25 BP: 140/88. MAP: 105. HR: 109. RR: 18. O2 saturation: 98% on room air.Temp: 100.4 F. Pain level now: 08/26. Have been reviewed. Oxygen saturation normal.Appearance: Alert. Oriented X3. No acute distress.Eyes: Pupils equal, round and reactive to light. Eyes normal inspection.ENT: Ears normal. Nose normal. Mild posterior pharyngeal erythema with right tonsillar swelling and lefttonsillar swelling. No pharyngeal vesicles or ulcerations.Neck: Normal inspection. Neck supple. No meningeal signs or lymphadenopathy.CVS: Tachycardia. Heart sounds normal. Pulses normal.Respiratory: No respiratory distress. Painless inspiration. Breath sounds normal.Abdomen: Soft. Mild tenderness in the epigastric area. No guarding or rebound tenderness. Bowelsounds normal. No organomegaly. No mass. Femoral pulses equal.Back: Normal inspection.Skin: Skin warm and dry. Normal skin color. No rash. Normal skin turgor.Extremities: Extremities exhibit normal ROM. No lower extremity edema.Neuro: Oriented X 3. No motor deficit. No sensory deficit. Reflexes normal.LABS, X-RAYS, AND EKGChest X-ray: No acute disease. Views: PA and lateral. Technique: good. The X-rays were interpretedcontemporaneously by me. Interpretation time: 01:11 09/05/2019.Laboratory Tests: Laboratory tests have been ordered, with results reviewed and considered in themedical decision making process. Lactic Acid: (HARIKA: 09/04/2019 21:58) ( MsgRcvd 09/04/2019 22:34) Final results Test Result Flag Units (Reference) LACTIC ACID 2.7 H MMOL/L (0.2 - 2.2) CBC w Diff: (HARIKA: 09/04/2019 21:58) ( MsgRcvd 09/04/2019 22:25) Final results Test Result Flag Units (Reference) CBC W/AUTOMATED DIFF COMPLETE BLOOD COUNT WBC 10.9 10/uL (4.2 - 11.0) RBC 5.43 10/uL (4.50 - 6.30) HEMOGLOBIN 16.7 H g/dL (14.0 - 16.0) HEMATOCRIT 49.6 % (41.0 - 51.0) MCV 91.3 fL (80.0 - 94.0) MCH 30.8 pg (27.0 - 34.0) MCHC 33.7 g/dL (31.0 - 36.0) RDW 11.9 % (11.5 - 14.8) PLATELETS 254 10/uL (150 - 450) MPV 10.1 fL (7.4 - 10.4) 3 Clinical Report - Physicians/Mid Levels [facility] Emergency Department [address] [place] [address] Phone #: ext- [phone] 09/04/2019 21:24 Patient: ROBIN PERKINS Sex: M : 2000 Age: 19y NEUT 92.2 H % (37.0 - 80.0) LYMPH 2.9 L % (25.0 - 40.0) MONO 4.4 % (3.0 - 8.0) EOS 0.1 % (0.0 - 7.0) BASO 0.2 % (0.0 - 2.0) %IG 0.2 H % (0.0 - 0.0) %NRBC 0.0 % (0.0 - 0.0) #NEUT 10.03 H 10/uL (2.00 - 6.90) #LYMPH 0.31 L 10/uL (0.60 - 3.40) #MONO 0.48 10/uL (0.00 - 0.90) #EOS 0.01 10/uL (0.00 - 0.70) #BASO 0.02 10/uL (0.00 - 0.20) #IG 0.02 10/uL (0.00 - 0.10) #NRBC 0.00 10/uL (0.00 - 0.00) MANUAL DIFF NOT INDICATED RBC MORPH NOT INDICATEDCMP: (HARIKA: 09/04/2019 21:58) ( MsgRcvd 09/04/2019 22:45) Final results Test Result Flag Units (Reference) COMPREHENSIVE METABOLIC PANEL COMPREHENSIVE METABOLIC PANEL SODIUM 139 mEq/L (134 - 153) POTASSIUM 4.1 mEq/L (3.6 - 5.0) CHLORIDE 101 mEq/L (98 - 107) CO2 24 MEQ/L (22 - 30) GLUCOSE 122 H MG/DL (65 - 110) BUN 15 MG/DL (7 - 21) CREATININE 1.1 MG/DL (0.7 - 1.5) BUN/CREAT 14 (8 - 27) TOTAL PROTEIN 8.1 G/DL (6.3 - 8.2) ALBUMIN 5.0 G/DL (3.9 - 5.0) GLOBULIN 3.1 GM/DL (2.4 - 3.2) A/G RATIO 1.6 (0.8 - 2.0) CALCIUM 9.7 MG/DL (8.4 - 10.2) TOTAL BILI 0.8 MG/DL (0.2 - 1.3) ALKALINE PHOS 64 U/L (38 - 126) SGOT/AST 25 U/L (5 - 40) SGPT/ALT 26 U/L (7 - 56) ANION GAP 14.0 mmol/L (8.0 - 16.0) AGE 19 yrs NON- AA GFR >60 mL/min AFR AMER GFR >60 mL/min Male GFR Interprentation 20-49 yrs >60 mL/min Dnprqb74-37 yrs >56 mL/min Normal 60- 69 yrs >49 mL/min Normal 70-79yrs>42 mL/min Normal 80 and above >35 mL/min Normal Female GFRInterpretation 20-39 yrs >60 mL/min Normal 40-49 yrs >58 mL/minNormal 50-59 yrs >51 mL/min Normal 60-69 yrs >45 mL/min Httorb53-44 yrs >39 mL/min Normal 80 and above >32 mL/min NormalLipase: (HARIKA: 09/04/2019 21:58) ( IdgRcvd 09/04/2019 22:45) Final results Test Result Flag Units (Reference) LIPASE 20 U/L (13 - 60)Influenza Nasal A B: (HARIKA: 09/04/2019 21:33) ( MsgRcvd 09/04/2019 22:21) Final results Test Result Flag Units (Reference) INFLUENZA A NEGATIVE (NORMAL: NEGAT INFLUENZA B NEGATIVE (NORMAL: NEGAT INFLUENZA A REENTER NEGATIVE (NORMAL: NEGAT INFLUENZA B REENTER NEGATIVE (NORMAL: NEGAT PROCEDURAL CONTROL VALID KIT LOT # _[id number] 09/04/19.2219.DW . KIT EXP DATE _32-74-53 29/18/20.DW .The Influenza A utilizing an isothermal nucleic acid amplification technology for thequalitativedetection of influenza A and B viral RNA.Negative results do not preclude influenza virus infection and shouldnot beused as the sole basis for diagnosis, treatment or other patient managementdecisions. 4 Clinical Report - Physicians/Mid Levels [facility] Emergency Department [address] [place] [address] Phone #: ext- [phone] 09/04/2019 21:24 Patient: ROBIN PERKINS Sex: M : 2000 Age: 19y Rapid Strep Screen: (HARIKA: 09/04/2019 21:33) ( MsgRcvd 09/04/2019 22:14) Final results Test Result Flag Units (Reference) RAPID STREP NEGATIVE (NORMAL: NEGAT RAPID STREP REENTER NEGATIVE (NORMAL: NEGAT { PROCEDURAL CONTROL VALID ){ KIT LOT # [id number] ){ KIT EXP DATE 08-21-20 )The Strep A 2 assay utilizes isothermal nucleic acid amplification technology fothe qualitative detection of Group A Strep bacterial nucleic acid in throat swabspecimens.All negative test results no longer need to be confirmed with a culture. Follow-up testing requiring a culture is necessary if clinical symptoms persist, or inthe event of an acute rheumatic fever outbreak. A culture will need to beordered by the Qualified Medical Provider.Negative results do not preclude infection with Group A Strep and should not beused as the sole basis for treatment. FLU PANEL: (HARIKA: 09/04/2019 22:05) ( MsgRcvd 09/05/2019 01:08) Final results Test Result Flag Units (Reference) FLU PANEL _RESPIRATORY PANEL, FLU4_ [place] [address] CLIA# [id number] SEE SCANNED REPORT.PROGRESS AND PROCEDURESCourse of Care: 22:02 09/04/19. case discussed w Public HealthRoseanna, who agrees w Covid-19 testing;we will also add Flu and Flu panel testing 00:31 09/05/19. workup all in and reviewed and nml except for slight elevation of lactic, Flu tests neg, rapid strep neg., Flu Panel from [facility] is also negative, CXR pending, COVID-19 testing pending, public health notified, pt doing much better 01:17 09/05/19. CXR reviewed and nml; pt will be d[facility]c back [facility] under isolation until COVID-19 test result is back; [employer] made aware; pt understand instructions; feels much improved. Patient counseled in person regarding the patient's stable condition, test results, diagnosis and need for follow-up. Patient agrees with plan of care. Disposition: Condition: good and stable. Discharge decision based on the following: patient's condition is stable; patient's condition is improved; patient is ambulatory; patient is active; patient drinking fluids; patient's pain is controlled; patient's exam is improved; no abnormal test results; improving condition on repeat evaluation; social support is good; tra nsportation is available; follow-up is available; clinical impression is consistent with outpatient treatment.CLINICAL IMPRESSION Acute norovirus gastroenteritis (R/O COVID-19). No volume depletion, dehydration or hypotension.INSTRUCTIONS 5 Clinical Report - Physicians/Mid Levels [facility] Emergency Department [address] [place] [address] Phone #: ext- [phone] 09/04/2019 21:24 Patient: ROBIN PERKINS Sex: M : 2000 Age: 19y Alternate Tylenol (Acetaminophen) or Motrin (Ibuprofen) for fever, temperature greater than 102 degrees orally. Take according to label instructions. No strenuous activity until released. Return to work when released by doctor. Drink plenty of fluids. Avoid alcohol and NSAIDS. NSAIDS include aspirin, ibuprofen (Advil) and naproxen (Aleve). Avoid fatty, fried/greasy, lactose-containing (such as milk, cheese and ice cream), salty and spicy foods. No alcohol. Do not smoke. (PLEASE STAY IN ISOLATION PER CUSHING PROTOCOLS UNTIL RESULTS OF COVI-19 TEST ARE BACK). Warnings: Further evaluation is necessary. It is very important to follow up with a healthcare provider. GENERAL WARNINGS: Return or contact your physician immediately if your condition worsens or changes unexpectedly, if not improving as expected, or if other problems arise. SPECIFICALLY, return if you develop pain in the abdomen, pelvis, back or shoulder, fever, vomiting, the inability to keep fluids down, blood in vomitus, blood in diarrhea or lightheadedness. Your Current Medications: . No home medication. Prescription Medications: Zofran 4 mg tablet Take 1 tablet four times a day as needed for 4 days -- Dispense 16 tablet. Refills: 0. Substit ution permitted. Pharmacy - [facility] - [id number] ; [place] [address]. . Follow-up: Return to the emergency department as needed. Follow up with your healthcare provider in two days even if well. Call for an appointment. Reason for referral: evaluation and treatment. Summary of care provided to patient via paper. Understanding of the discharge instructions verbalized by patient. Expected course of illness, discharge instructions, activity level, diet, prescriptions x1, follow-up appointment and risks and benefits of treatment reviewed with patient and understanding verbalized. Agrees to plan of care.(Electronically signed by Joseph Migeul M.D. 09/05/2019 01:53) Name Value Range Interpretation Code Description Data Liberty rce(s) Supporting Document(s) ID Date Data Source [id number] 09/04/2019 09:32:00 PM EDT [facility] Addenda for ROBIN PERKINS VisitID: [id number] Date: 7:00Notified patient that his Covid-19 test came back negative.(Electronically signed by Geneva Araujo RN - 09/10/2019 7:00)09/10/2019 9:34Lab results reviewed.COVID-19, SARS-CoV-2 NOT DETECTED. [facility] Patient previously notified ofnegative results by Geneva Araujo RN.(Electronically signed by Roasna Nguyễn RN - 09/10/2019 9:34) Name Value Range Interpretation Code Description Data Liberty rce(s) Supporting Document(s) ID Date Data Source [id number] 09/05/2019 09:12:00 AM EDT [facility] [address] [place] [address] PHONE: [phone] FAX: [phone] Name .................. : MADDIE ROBIN Durán Acct Number.................. : [id number] ROOM. ................. : TR-05 MR Number ................... : [id number] Stay type ............. : E/R Discharge Date......... ... : 09/05/19 Admit Date ......... : 09/04/19 Admit Phys .................... : TURRIN EULALIA Date of ....... : 2000 Family Phys ................... : UNKNOWN CO Phone .................. : [phone] Age ................................ : 19 Film# .................. .:[id number] Sex ................................. : M Unsigned transcriptions are preliminary reports and do not represent a medical or legal document CHEST 2 VIEWS [id number] COMPLETE:09/05/19 02:37 DLA [id number] Reason(s): Cough CHEST X-RAY: 2-VIEWS INDICATION: Cough. FINDINGS: The cardiac and mediastinal silhouettes appear normal and the lungs are clear. The bones and soft tissues are normal. The upper abdomen is unremarkable. IMPRESSION: No acute disease identifiable. Electronically Reviewed and Signed By Jose Juan Carter M.D. , 09/05/19 09:12, CTY Transcribe Initials: MANOLO , Transcribe Date: 09/05/19 07:02, Dictation Date: Copy for: EMERGENCY DEPT via modem Copy for: 710 MED REC DISCHARGED Page 1 of 1 Name Value Range Interpretation Code Description Data Liberty rce(s) Supporting Document(s) ID Date Data Source [id number] 09/04/2019 10:09:00 PM EDT [facility] Name Value Range Interpretation Code Description [facility](s) SARS CORONAVIRUS 2 RNA [facility] and reported by [facility]. ID Date Data Source [id number] 09/10/2019 06:41:00 AM EDT [facility] Name Value Range Interpretation Code Description Data Liberty rce(s) Supporting Document(s) SARS-CoV-2, MICHELLE Not Detected Not Detected [facility] Testing was performed using the juana(R) SARS-CoV-2 test.This test was developed and its performance characteristics determinedby [facility]. This test has not been FDA cleared orapproved. This test has been authorized by FDA under an Emergency UseAuthorization (EUA). This test is only authorized for the duration oftime the declaration that circumstances exist justifying theauthorization of the emergency use of in vitro diagnostic tests fordetection of SARS-CoV-2 virus and/or diagnosis of COVID-19 infectionunder section 564(b)(1) of the Act, 21 U.S.C. 360bbb-3(b)(1), unlessthe authorization is terminated or revoked sooner. ID Date Data Source [id number] 09/05/2019 12:15:00 AM EDT [facility] 69THIS TESTS FOR HUMAN CORONAVIR US NOT COVID-19FilmArray Respiratory Panel is a Multiplexed NAAT-PCR testNORMAL VALUE FOR ALL 20 PATHOGENS IS "NOT DETECTED".The FilmArray RP panel detects Influenza A H1,H3 [id number] H1 viruses,Influenza B virus, Respiratory syncytialvirus, Human metapneumovirus,Parainfluenza virus 1,2,3, and4, Adenovirus,Rhino/Enterovirus,Coronavirus HKU 1, Nl63,OC43, and 229E,Bordetella pertussis, Bordetellaparapertussis, Mycoplasma pneumoniae and Chlamydiapneumoniae.THIS TEST HAS NOT BEEN EVALUATED FOR USE WITH SPECIMENSOTHER THAN NASOPHARYNGEAL SWAB SPECIMENS.THE PERFORMANCE OF THIS TEST HAS NOT BEEN ESTABLISHED FORPATIENTS WITHOUT SIGNS AND SYMPTOMS OF RESPIRATORYINFECTION.RESULTS FROM THIS TEST MUST BE CORRELATED WITH CLINICALHISTORY, EPIDEMIOLOGICAL DATA , AND OTHER DATA AVAILABLE TOTHE CLINICIAN EVALUATING THE PATIENT.THE PERFORMANCE OF THE FilmARRAY RP HAS NOT BEEN ESTABLISHEDIN INDIVIDUALS WHO RECEIVED INFLUENZA VACCINE. RECENTADMINISTRATION OF A NASAL INFLUENZA VACCINE MAY CAUSE AFALSE POSITIVE RESULT FOR INFLUENZA A AND/OR B.NEGATIVE RESULTS SHOULD NOT BE USED THE SOLE BASIS FORDIAGNOSIS, TREATMENT, OR OTHER MANAGEMENT DECISIONS.NEGATIVE RESULTS IN THE SETTING OF A RESPIRATORY ILLNESSMAYBE DUE TO INFECTION WITH PATHOGENS THAT ARE NOT DETECTEDBY THIS TEST OR LOWER RESPIRATORY TRACT INFECTION THAT ISNOT DETECTED BY A NASOPHARYNGEAL SWAB SPECIMEN.No Organisms Detected Name Value Range Interpretation Code Description Data Liberty rce(s) Supporting Document(s) ID Date Data Source [id number] 09/05/2019 01:08:00 AM EDT [facility] Name Value Range Interpretation Code Description Data Liberty rce(s) Supporting Document(s) FLU PANEL [facility] _RESPIRATORY PANEL, FLU4_ TEST P ERFORMED AT [address] [address] CLIA# [id number] SEE SCANNED REPORT ID Date Data Source [id number] 09/10/2019 07:18:00 AM EDT [facility] Name Value Range Interpretation Code Description Data Liberty rce(s) Supporting Document(s) Bacteria identified in Blood by Culture [facility] NO GROWTH AFTER 5 DAYS ID Date Data Source [id number] 09/11/2019 04:06:00 AM EDT [facility] Name Value Range Interpretation Code Description Data Liberty rce(s) Supporting Document(s) CULTURE BLOOD [facility] _CULTURE BLOOD_ TEST PERFORM ED AT [address] [address] CLIA# [id number] SEE SCANNED REPORT{ PRELIM ID Date Data Source [id number] 09/04/2019 10:45:00 PM EDT [facility] Name Value Range Interpretation Code Description Data Liberty rce(s) Supporting Document(s) Lipase [Enzymatic activity/volume] in Serum or Plasma 20 U/L 13 - 60 [facility] ID Date Data Source [id number] 09/04/2019 10:44:00 PM EDT [facility] Name Value Range Interpretation Code Description Data Liberty rce(s) Supporting Document(s) COMPREHENSIVE METABOLIC PANEL [facility] COMPREHENSIVE METABOLIC PANEL Sodium [Moles/volume] in Serum or Plasma 139 mEq/L 134 - 153 [facility] Potassium [Moles/volume] in Serum or Plasma 4.1 mEq/L 3.6 - 5.0 [facility] Chloride [Moles/volume] in Serum or Plasma 101 mEq/L 98 - 107 [facility] Carbon dioxide, total [Moles/volume] in Serum or Plasma 24 MEQ/L 22 - 30 [facility] Glucose [Mass/volume] in Serum or Plasma 122 MG/DL 65 - 110 H [facility] BUN 15 MG/DL 7 - 21 [facility] al Creatinine [Mass/volume] in Serum or Plasma 1.1 MG/DL 0.7 - 1.5 [facility] BUN/CREAT 14 8 - 27 [facility] Protein [Mass/volume] in Serum or Plasma 8.1 G/DL 6.3 - 8.2 [facility] Albumin [Mass/volume] in Serum or Plasma 5.0 G/DL 3.9 - 5.0 [facility] Globulin [Mass/volume] in Serum by calculation 3.1 GM/DL 2.4 - 3.2 [facility] A/G RATIO 1.6 0.8 - 2.0 [facility] Calcium [Mass/volume] in Serum or Plasma 9.7 MG/DL 8.4 - 10.2 [facility] Bilirubin.total [Mass/volume] in Serum or Plasma 0.8 MG/DL 0.2 - 1.3 [facility] Alkaline phosphatase [Enzymatic activity/volume] in Serum or Plasma 64 U/L 38 - 126 [facility] Aspartate aminotransferase [Enzymatic activity/volume] in Serum or Plasma 25 U/L 5 - 40 [facility] Alanine aminotransferase [Enzymatic activity/volume] in Seru m or Plasma 26 U/L 7 - 56 [facility] Anion gap 3 in Serum or Plasma 14.0 mmol/L 8.0 - 16.0 [facility] AGE 19 yrs [facility] NON-AA GFR >60 mL/min [facility] AFR AMER GFR >60 mL/min [facility] [facility] Male GFR In terprentation 20-49 yrs >60 mL/min Normal 50-59 yrs >56 mL/min Normal 60-69 yrs >49 mL/min Normal 70-79yrs >42 mL/min Normal 80 and above >35 mL/min Normal Female GFR Interpretation 20-39 yrs >60 mL/min Normal 40-49 yrs >58 mL/min Normal 50-59 yrs >51 mL/min Normal 60-69 yrs >45 mL/min Normal 70-79 yrs >39 mL/min Normal 80 and above >32 mL/min Normal ID Date Data Source [id number] 09/04/2019 10:34:00 PM EDT [facility] Name Value Range Interpretation Code Description Data [employer] rce(s) Supporting Document(s) Lactate [Moles/volume] in Serum or Plasma 2.7 MMOL/L 0.2 - 2.2 H [facility] ID Date Data Source [id number] 09/04/2019 10:22:00 PM EDT [facility] Name Value Range Interpretation Code Description Data [employer] rce(s) Supporting Document(s) CBC W/AUTOMATED DIFF [facility] COMPLETE BLOOD COUNT Leukocytes [#/volume] in Blood by Automated count 10.9 10^3/uL 4.2 - 11.0 [facility] Erythrocytes [#/volume] in Blood by Automated count 5.43 10^6/uL 4. 50 - 6.30 [facility] Hemoglobin [Mass/volume] in Blood 16.7 g/dL 14.0 - 16.0 H [facility] Hematocrit [Volume Fraction] of Blood by Automated count 49.6 % 4 1.0 - 51.0 [facility] Erythrocyte mean corpuscular volume [Entitic volume] by Auto mated count 91.3 fL 80.0 - 94.0 [facility] Erythrocyte mean corpuscular hemoglobin [Entitic mass] by Automated count 30.8 pg 27.0 - 34.0 [facility] Erythrocyte mean corpuscular hemoglobin concentration [Mass/volume] by Automated count 33.7 g/dL 31.0 - 36.0 [facility] Erythrocyte distribution width [Ratio] by Automated count 11.9 % 11.5 - 14.8 [facility] Platelets [#/volume] in Blood by Automated count 254 10^3/uL 150 - 45 0 [facility] Platelet mean volume [Entitic volume] in Blood by Automated count 10.1 fL 7.4 - 10.4 [facility] Neutrophils/100 leukocytes in Blood by Automated count 92.2 % 37. 0 - 80.0 H [facility] Lymphocytes/100 leukocytes in Blood by Manual count 2.9 % 25.0 - 40.0 L [facility] Monocytes/100 leukocytes in Blood by Automated count 4.4 % 3.0 - 8.0 [facility] Eosinophils/100 leukocytes in Blood by Automated count 0.1 % 0.0 - 7.0 [facility] Basophils/100 leukocytes in Blood by Automated count 0.2 % 0.0 - 2.0 [facility] %IG 0.2 % 0.0 - 0.0 H [facility] %NRBC 0.0 % 0.0 - 0.0 [facility] al Neutrophils [#/volume] in Blood by Automated count 10.03 10^3/uL 2. 00 - 6.90 H [facility] Lymphocytes [#/volume] in Blood by Automated count 0.31 10^3/uL 0.60 - 3.40 L [facility] Monocytes [#/volume] in Blood by Automated count 0.48 10^3/uL 0.00 - 0.90 [facility] Eosinophils [#/volume] in Blood by Automated count 0.01 10^3/uL 0.00 - 0.70 [facility] Basophils [#/volume] in Blood by Automated count 0.02 10^3/uL 0.00 - 0.20 [facility] #IG 0.02 10^3/uL 0.00 - 0.10 [facility] ospital #NRBC 0.00 10^3/uL 0.00 - 0.00 [facility] H ospital MANUAL DIFF NOT INDICATED [facility] RBC MORPH NOT INDICATED [facility] ID Date Data Source [id number] 09/04/2019 10:21:00 PM EDT [facility] Name Value Range Interpretation Code Description Data [employer] rce(s) Supporting Document(s) Influenza virus A Ag [Presence] in Nasopharynx by [facility] y NEGATIVE NORMAL: NEGATIVE [facility] Influenza virus B Ag [Presence] in Nasopharynx by [employer] y NEGATIVE NORMAL: NEGATIVE [facility] NEGATIVENEGATIVE PROCEDURAL CO NTROL VALID KIT LOT # [id number] 09/04/19.2219.DW . KIT EXP DATE _[id number] 09/04/19.2219.DW .The Influenza A & B assay is a rapid molecular in vitro diagnostic testutilizing an isothermal nucleic acid amplification technology for thequalitative detection of influenza A and B viral RNA.Negative results do not preclude influenza virus infection and should not beused as the sole basis for diagnosis, treatment or other patient managementdecisions. ID Date Data Source [id number] 09/04/2019 10:13:00 PM EDT [facility] Name Value Range Interpretation Code Description Data [employer] rce(s) Supporting Document(s) RAPID STREP NEGATIVE NORMAL: NEGATIVE [facility] RAPID STREP REENTER NEGATIVE NORMAL: NEGATIVE [facility] { PROCEDURAL CONTROL VALID ){ KIT LOT # [id number] ){ KIT EXP DATE 08-21-20 )The Strep A 2 assay utilizes isothermal nucleic acid amplification technology fothe qualitative detection of Group A Strep bacterial nucleic acid in throat swabspecimens.All negative test results no longer need to be confirmed with a culture. Follow-up testing requiring a culture is necessary if clinical symptoms persist, or inthe event of an acute rheumatic fever outbreak. A culture will need to beordered by the Qualified Medical Provider.Negative results do not preclude infection with Group A Strep and should not beused as the sole basis for treatment. Procedure
[2020-08-05] MEDS ORDERED: MELO15TA28 PO (08:31)
[2020-08-05] MEDS ORDERED: COMBIVENT RESPIMAT 100-20MCG INHALER 4GM INH ONE (09:00)
[2020-08-05] MEDS ORDERED: GI COCKTAIL 50ML BTL(HYOSCYAMINE/MAALOX/LIDOCAINE VISCOUS)(1:3:1) PO ONE (09:00)
--- NOTE | 2020-08-05 09:13 | REP ---
INDICATION: CHEST PAIN COMPARISON: 06/01/2019 TECHNIQUE: Portable AP view of the chest FINDINGS: The mediastinum and cardiac silhouette are stable and within normal limits for portable technique. The lung mccarthy are clear without acute consolidation, effusion, or pneumothorax. Skeletal structures are intact. IMPRESSION: No acute cardiopulmonary process appreciated. <Electronically signed by Erwin Colbert > 08/05/20 0910
[2020-08-05 09:17] LABS: BASO % 0.3 % (0.0-1.0); EOS # 0.1 10^3/uL (0.0-0.5); EOS % 1.7 % (0.0-3.0); HEMATOCRIT 43.8 % (42.0-52.0); HEMOGLOBIN 14.1 g/dl (13.5-17.5); LYMPH # 1.7 10^3/uL (1.5-5.0); LYMPH % 28.6 % (24.0-44.0); MEAN CORPUSCULAR HEMOGLOBIN 30.8 pg (27.0-33.0); MEAN CORPUSCULAR HGB CONC 32.2 g/dl (32.0-36.5); MEAN CORPUSCULAR VOLUME 95.6 fl (80.0-96.0); MONO # 0.6 10^3/uL (0.0-0.8); MONO % 10.8 % (2.0-8.0); NEUTROPHILS # 3.4 10^3/uL (1.5-8.5); NEUTROPHILS % 58.3 % (36.0-66.0); PLATELET COUNT, AUTOMATED 248 10^3/uL (150-450); RED BLOOD COUNT 4.58 10^6/uL (4.30-6.10); WHITE BLOOD COUNT 5.8 10^3/uL (4.0-10.0)
--- OUTSIDE RECORDS SUMMARY | 2020-08-05 09:18 | CCD ---
Author Author [facility] Organization [facility] Address Unknown Phone Unavailable Care Team Providers Care Baker Test Name Role Phone TURRIN, JOSEPH Unavailable Unavailable [...] is protected by Article 27-F of the [facility] Public Health law. If you continue you may have access to information: Regarding HIV / AIDS; Provided by facilities licensed or operated by the [facility] Office of Mental Health; or Provided by the [facility] Office for People With Developmental Disabilities. If such information is present, then the following [facility] mandated warning applies: This information has been [...] law may result in a fine or group home sentence or both. A general authorization for the release of medical or other information is NOT sufficient authorization for further disc losure. Encounters Encounter Providers Location Date Indications Data Source(s ) [facility] ( in Healthcare facility) Attender: NICOLAS CHAVEZ MDAdmitter: ISABEL CHAVEZ MD 04/29/2020 05:48:00 AM EST - 04/29/2020 06:06:0 0 PM [facility] Outpatient Attender: ISABEL CHAVEZ MDAdmitter: ISABEL Ruiz MD 04/29/2020 05:48:00 AM EST - 04/29/2020 06:06:00 PM EST LABRAL TEAR LEFT HIP M24.152 [facility] LABRAL TEAR LEFT HIP M24.152 Patient discharged. Outpatient Attender: ISABEL CHAVEZ MD 04/29/2020 05:48:00 AM [facility] Outpatient Attender: 0000{ [place] 04/24/2020 09:12:[address] [facility] Outpatient Attender: ISABEL CHAVEZ MD 04/24/2020 09:12:00 AM EST LABRAL TEAR [facility] LABRAL TEAR Outpatient CMP [facility] [place] 04/24/2020 08:50:0 0 AM EST [facility] ([facility]) Outpatient Attender: GLENDY MARQUEZ 020 01:26:00 PM EDT - 12/16/2019 02:26:00 PM EDT [facility] Outpatient 09/04/2019 10:05:00 PM EDT [facility] Emergency Attender: JOSEPH MIGUEL 2019 09:32:00 PM EDT - 09/05/2019 01:44:00 AM EDT [facility] Patient discharged. Insurance Providers Payer name Policy type / Coverage type Policy ID Covered republican ID Covered republican's relationship to kemp Policy Kemp Plan Information [facility] ACTIVE DUTY [id number] SP [id number] [facility] [id number] S [id number] [facility] HUMANA - O/P [id number] 18 [id number] [employer] [id number] SELF PAY ONLY [id number] ACTIVE DUTY [id number] Problems, Conditions, and Diagnoses Code Display Name Description Problem Type Effective Dates Data Source(s) W21907 Pain in left hip Pain in left hip Diagnosis 12/16/2019 01 :26:00 PM EDT [facility] J26033 Nicotine dependence, cigarettes, uncompl icated Nicotine dependence, cigarettes, uncomplicated Diagnosis 09/04/2019 09:32:00 PM EDT [facility] A0811 Acute gastroenteropathy due to Trinity a gent Acute gastroenteropathy due to Trinity agent Diagnosis 09/04/2019 09:32:00 PM EDT [facility] R197 Diarrhea, unspecified Diarrhea, unspecified Diagnosis 09/04/2019 09:32:00 PM EDT [facility] Results ID Date Data Source [id number] 04/30/2020 07:41:[address] [address]IVHCVKU NAME: VESTA PERKINS OF : 2000REPORT: OPERATIONPATIENT NUMBER: [id number] STATUS: OF ADMISSION:DATE OF DISCHARGE:ROOM:DATE OF PROCEDURE: [...] a 20-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 Traction was [...] normal ligament teres, depths of the acetabulum. A04-uhifnn scope was exchanged. Posterior spinal needle was [...] prophylaxis. [facility] my office in 1 week for suture removal.DICTATED BY: Isabel Chavez, MDDictated: 04/29/2020 11:41DT: 04/29/2020 11:49Job #: [id number]: [facility] computer generated reports are not confirmed orauthenticated unless they are signed by the providerElectronically Authenticated by:ISABEL CHAVEZ MD On 04/30/2020 07:41 AM EST Name Value Range Interpretation Code Description Data Liberty rce(s) Supporting Document(s) ID Date Data Source [id number] 04/29/2020 01:46:00 PM EST [facility] DATE OF EXAM: 04/29/2020EXAM: Intraopera tive fluoroscopy. INDICATION: left hip arthroscopy FINDINGS/ IMPRESSION:Images were obtained under fluoroscopy for a procedure NOT involving a radiologist. A total of 5 images were obtained showing coned-down images of the hip during arthroscopy. Please reference the clinical notes of the physician performing the procedure regarding findings. Total fluoroscopy time of 24 seconds Professional interpretation performed at [facility] .End of diagnostic report for accession: [id number] Interpreted: Rosi Hargrove MDTranscribed: 04/29/2020 01:45 PMSigned: 04/29/2020 01:46 PM Rosi Hargrove MD [facility] ACC # [id number] BILL # [id number] COR Name Value Range Interpretation Code Description Data Liberty rce(s) Supporting Document(s) ID Date Data Source [id number] 04/24/2020 12:43:00 PM EST [facility] Name Value Range Interpretation Code Description Data Liberty rce(s) Supporting Document(s) SARS coronavirus 2 RNA [Presence] in Res piratory specimen by MICHELLE with probe detection [facility] This lab was ordered by [facility] - Surgical and reported by [employer]. ID Date Data Source [id number] 04/24/2020 12:45:00 PM EST [facility] DATE OF EXAM: 04/24/2020Examination: CT of [...] of the labrum. Professional interpretation performed at [facility] .End of diagnostic report for accession: [id number] Interpreted: John Nieves MDTranscribed: 04/24/2020 12:35 PMSigned: 04/24/2020 12:45 PM John Nieves MD [facility] # [id number] BILL # [id number] [facility] Name Value Range Interpretation Code Description Data Liberty rce(s) Supporting Document(s) ID Date Data Source [id number] 04/24/2020 12:45:00 PM LARY Martínez sc DATE OF EXAM: 04/24/2020Examination: CT of the [...] of the labrum. Professional interpretation performed at [facility] [place] .End of diagnostic report for accession: [id number] Interpreted: John Nieves MDTranscribed: 04/24/2020 12:35 PMSigned: 04/24/2020 12:45 PM John Nieves MD [facility] # [id number] BILL # [id number] [facility] Name Value Range Interpretation Code Description Data Liberty rce(s) Supporting Document(s) ID Date Data Source [id number] 12/18/2019 12:55:00 [place] [address] PHONE: [phone] FAX: [phone] Name .................. : MADDIE KELLY Leeanna Acct Number.................. : [id number] ROOM. ................. : Number ................... : [id number] Stay type ............. : O/P Discharge Date......... ... : 12/16/19 Admit Date ......... : 12/16/19 Admit Phys .................... : JIMMY BAILEY Date of ....... : 2000 Family Phys ................... : UNKNOWN CO Phone .................. : [phone] Age ................................ : 19 Film# .................. .:[id number] Sex ................................. : M Unsigned transcriptions are preliminary reports and do not represent a medical or legal document INJECTION FOR HIP ARTHROGRAM [id number] COMPLETE:12/16/19 16:08 ARS 55722 REASON FOR EXAM: PAIN FLUO ROSCOPIC EXAMINATION [...] 12/18/19 12:55, GMM Page 1 of [address] [place] [address] PHONE: [phone] FAX: [phone] Name .................. : MADDIE Durán Acct Number.................. : [id number] ROOM. ................. : Number ................... : [id number] Stay type ............. : O/P Discharge Date......... ... : 12/16/19 Admit Date ......... : 12/16/19 Admit Phys .................... : JIMMY AVALOS Date of ....... : 2000 Family Phys ................... : UNKNOWN CO Phone .................. : [phone] Age ................................ : 19 Film# .................. .:[id number] Sex .................... ............. : M Unsigned transcriptions are preliminary reports and do not represent a medical or legal document INJECTION FOR HIP ARTHROGRAM [id number] COMPLETE:12/16/19 16:08 ARS 00758 REASON FOR EXAM: PAIN Transcribe Initials: DZ , Transcribe Date: 12/16/19 17:27, Dictation Date: Copy for: JIMMY DE Copy for: [facility] REC Page 2 of 2 Name Value Range Interpretation Code Description Data Liberty rce(s) Supporting Document(s) ID Date Data Source [id number] 12/17/2019 08:28:00 AM EDT [facility] [address] [place] [address] PHONE: [phone] FAX: [phone] Name .................. : MADDIE Durán Acct Number.................. : [id number] ROOM. ................. : Number ................... : [id number] Stay type ............. : O/P Discharge Date......... ... : 12/16/19 Admit Date ......... : 12/16/19 Admit Phys .................... : JIMMY AVALOS Date of ....... : 2000 Family Phys ................... : UNKNOWN CO Phone .................. : [phone] Age ................................ : 19 Film# .................. .:[id number] Sex ................................. : M Unsigned transcriptions are preliminary reports and do not represent a medical or legal document MRI LOWER EXT ANY JT W CONT [id number] COMPLETE:12/16/19 14:29 [facility] [id number] (REASON FOR PROCESS: PAIN MRI STUDY OF [...] MD , 12/17/19 08:28, RNNicolette Transcribe Initials: MANOLO , Transcribe Date: 12/17/19 00:54, Dictation Date: Copy for: JIMMY DE Copy for: [address] [place] [address] REC Page 1 of 1 Name Value Range Interpretation Code Description Data Liberty rce(s) Supporting Document(s) ID Date Data Source [id number] 09/04/2019 09:32:00 PM EDT [facility] 1 OrderSheet [facility] Emergency Department [address] [place] [address] Phone #: ext- [phone] 09/04/2019 21:24 Patient: ROBIN PERKINS Sex: M : 2000 Age: 19yWEIGHT:95.2 kg (M) HEIGHT:71 inches (S) BMI:29.3ALLERGIES: NoneCHIEF COMPLAINT: vomiting, diarrheaDIAGNOSIS: GastroenteritisLAB ORDERSOrder Description Priority Entered Acknowledged InitialedCBC w Diff STAT 21:48 09/04/2019 21:50 Ina [...] Culture STAT 21:49 09/04/2019 Ack'd: 22:03 22:07 lenin Arcem X2 (Sched Joseph Miguel Tiffany Tiffany R.N.21:59 09/04/2019) Rony; R.N.Lactic Acid STAT 21:49 09/04/2019 21:51 Ina Arce Riccardo Tiffany R.N. M.D.; 2 OrderSheet [facility] Emergency Department [address] [place] [address] Phone #: ext- [phone] 09/04/2019 21:24 Patient: [...] SegunBolus: : Bolus 1000 Joseph Miguel (X1) M.DDewey;GENERAL ORDERSOrder Description Priority Entered Acknowledged InitialedNPO 21:48 09/04/2019 21:50 Ina Arce Riccardo Tiffany R.N. M.D.;Saline Lock 21:48 09/04/2019 21:50 Ina Arce Riccardo Tiffany R.N. M.D.;[Electronically signed by Ember Cast R.N. (01:44 09/05/2019)][Electronically signed by Joseph Miguel M.D. (01:53 09/05/2019)][Electronically locked by Ember Cast R.N. (01:44 09/05/2019)] Name Value Range Interpretation Code Description Data Liberty rce(s) Supporting Document(s) ID Date Data Source [id number] 09/04/2019 09:32:00 PM EDT [facility] 1 Medication Reconciliation Report [facility] Emergency Department [address] [place] [address] Phone #: ext- [phone] 09/04/2019 21:24 Patient: [...] Dispense 16 tablet. Refills: 0.Substitution permitted.Pharmacy - [facility] [address] [facility] ; [place] [address]. . -- Joseph Miguel M.D. Name Value Range Interpretation Code Description Data Liberty rce(s) Supporting Document(s) ID Date Data Source [id number] 09/04/2019 09:32:00 PM EDT [facility] 1 Medication Administration Record [facility] Emergency Department [address] [place] [address] Phone #: ext- [phone] 09/04/2019 21:24 Patient: ROBIN PERKINS Sex: M : 2000 Age: 19yWeight: 95.2 kgHeight/Length: 71 inBMI: 29.3ALLERGIES: None Date/Time Medication Administered Medication OrderedStart NS [IV] NS IV 1000 mL Bolus: : Bolus 375649:02 09/04/2019 Dose: IV Fluids mL (X1)Rosamaria Arce R.N. Bolus: 1000 mL wide open---- Dispensed: 1000 mL bagStop Site: #1 right AC01:43 09/05/2019Ember Cast R.N.Given ZOFRAN [IVP] (ONDANSETRON HCL) Zofran IVP 8 mg22:01 09/04/2019 Dose: 8 mg IVPMattRosamaria naidu R.N. Site: #1 right ACStart NS [IV] NS IV 1000 mL Bolus: : Bolus 767420:48 09/04/2019 Dose: IV Fluids mL (X1)Ember Cast R.N. Rate: 1000 mL/hr over 1 hour(s)---- Dispensed: 1000 mL bagStop Site: #1 right AC01:43 09/05/2019Ebmer Cast R.N. Name Value Range Interpretation Code Description Data Liberty rce(s) Supporting Document(s) ID Date Data Source [id number] 09/04/2019 09:32:00 PM EDT [facility] 1 General Instructions [facility] Emergency Department [address] [place] [address] Phone #: ext- [phone] 09/04/2019 21:24 Patient: [...] Do not smoke.(PLEASE STAY IN ISOLATION PER [place] [facility] UNTIL RESULTS OF COVI-19 TESTARE BACK).Warnings: [...] Dispense 16 tablet. Refills: 0.Substitution permitted.Pharmacy - [address] ; [place] [address]. .Follow-up:Return to the em ergency department as [...] to plan of care. 2 General Instructions [facility] Emergency Department [address] [place] [address] Phone #: ext- [phone] 09/04/2019 21:24 Patient: ROBIN PERKINS Sex: M [...] chills Nausea and vomiting 3 General Instructions [facility] Emergency Department [address] [place] [address] Phone #: ext- [phone] 09/04/2019 21:24 Patient: [...] with soap and water or use alcohol-based it risk and assurance manager to prevent the spread of infection. Wash your hands after touching anyone who is sick. Wash your hands or use alcohol-based it risk and assurance manager after using the toilet and before [...] Keep uncooked meats away from cooked and ekzuf-se-tpv foods.MedicineYou may use acetaminophen or NSAID medicines [...] these guidelines for food: 4 General Instructions [facility] Emergency Department [address] [place] [address] Phone #: ext- [phone] 09/04/2019 21:24 Patient: [...] your provider if you don't get better ytokmq25 hours or if diarrhea lasts more than a week. Also follow up if you are unable to keep down liquids 5 General Instructions [facility] Emergency Department [address] [place] [address] Phone #: ext- [phone] 09/04/2019 21:24 Patient: ROBIN PERKINS Sex: M : 2000 Age: 19yand get dehydrated. If a stool (diarrhea) sample was taken, call as directed for the results.Call [phone] if any of these occur: Trouble breathing [...] directed by your healthcare provider Jay chapa [phone] [employer]. [address] [place] [address]. All rights reserved. This information is not intended as asubstitute for professional medical care. Always follow your healthcare professional's instructions.Fever Control (Adult)A fever is a normal reaction of your body to an illness. The temperature itself usually isn't harmful. It 6 General Instructions [facility] Emergency Department [address] [place] [address] Phone #: ext- [phone] 09/04/2019 21:24 Patient: [...] better after 48 hours. 7 General Instructions [facility] Emergency Department [address] [place] [address] Phone #: ext- [phone] 09/04/2019 21:24 Patient: [...] place where infectious diseases arecommon. Many people [place] pick[place] a cold or other virus while traveling. This usually goes away without aproblem. But, some places have more serious diseases. Fever with certain other symptoms may 8 General Instructions [facility] Emergency Department [address] [place] [address] Phone #: ext- [phone] 09/04/2019 21:24 Patient: ROBIN PERKINS Sex: M : 2000 Age: 19ymean you have a serious illness. Symptoms to watch for include diarrhea, skin rashes, insect bites,and skin boils, or infections. Your provider may ask you: What you did on your trip How long you were there Where you stayed (hotel, [place] house, tent) What you ate and drank If you were bitten by insects or other bugs If you swam in freshwater If you had sex or got a tattoo or piercing while you were thereCheck the [facility] to get more information about specific infectious diseases in the areas you havetraveled. [phone] [employer]. [address] [place] [address], [place] [address]. All rights reserved. This information is not [...] rce(s) Supporting Document(s) ID Date Data Source [id number] 09/04/2019 09:32:00 PM EDT [facility] 1 Clinical Report - Nurses [facility] Emergency Department [address] [place] [address] Phone #: ext- [phone] 09/04/2019 21:24 Patient: [...] his grandfather whowas in the hospital in [place] with all of the symptoms and was [...] 09/04/19 Ember Cast R.N.ADDITIONAL SURGERIES:None. --21:28 09/04/19 Ember Cast R.N.HistoryPAST MEDICAL HX: Immunizations: up-to-date.SOCIAL HX: Current every day heavy tobacco smoker (cigarette)- less than 1 pack per day. No alcoholuse or drug use. The patient has had contact with a sick family member with suspected. (COVID). Thepatient was offered HIV testing but declined. Patient education was provided. The patient has not traveledoutside the [place]Infectious disease exposure: (recent visit with grandfather in [place] who has all the covid symptoms andwas tested yesterday).SELF HARM ASSESSMENT: Self harm assessment was performed. The patient answered "no" to thequestion(s) "Have you recently felt down, depressed, or hopeless?", "Do you have thoughts of harming orkilling yourself?", "Do you have a plan for harming or killing yourself?", "Have you recently had thoughts 2 Clinical Report - Nurses [facility] Emergency Department [address] [place] [address] Phone #: ext- [phone] 09/04/2019 21:24 Patient: [...] advanced directive. --21:31 09/04/19 Ember Cast R.N.PHYSICAL HEFGITTHNM66:34 09/04/19. ( pt was near his grandpa, [...] saline. --21:44 09/04/19 Rosamaria Arce R.N. ( laboratory engineer drawing blood at bedside.). --21:59 09/04/19 Sierra Starks R.N. 22:01 09/04/2019 Zofran (Ondansetron HCl) IVP 8 mg given over 5 minute(s) via site #1. Allergies verified and confirmed 5 rights. IV patency established. IV site checked: no pain, redness, or swelling. IV flushed 3 Clinical Report - Nurses [facility] Emergency Department [address] [place] [address] Phone #: ext- [phone] 09/04/2019 21:24 Patient: ROBIN PERKINS Sex: M [...] given. Verbalized understanding. Written instructions provided in Egyptian. The patient was discharged by the physician. He was discharged home and accompanied by family. He left ambulatory and via private vehicle. Family member driving. ( pt. 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 he has been given a phone number for [employer] to follow up with [employer] 19 results). --01:40 09/05/19 Ember Cast R.N. 01:38 09/05/19. BP: 134/78. MAP: 96. HR: 84. RR: 16. O2 saturation: 100%. Temp: 98.5 F. Pain level now: 0/10. --01:40 09/05/19 Ember Cast R.N.Locked/Released at 09/05/2019 01:44 by Ember Cast R.N. 4 Clinical Report - Nurses [facility] Emergency Department [address] [place] [address] Phone #: ext- [phone] 09/04/2019 21:24 Patient: ROBIN PERKINS Sex: M : 2000 Age: 19y Name Value Range Interpretation Code Description Data Liberty rce(s) Supporting Document(s) ID Date Data Source [id number] 09/04/2019 09:32:00 PM EDT [facility] 1 Clinical Report - Physicians/Mid Levels [facility] Emergency Department [address] [place] [address] Phone #: ext- [phone] 09/04/2019 21:24 Patient: [...] (pt visited grandfather who was hospitalized in [facility] for URI, SOB, fever; pt returned on [...] Allergies: 2 Clinical Report - Physicians/Mid Levels [facility] Emergency Department [address] [place] [address] Phone #: ext- [phone] 09/04/2019 21:24 Patient: ROBIN PERKINS [facility]#: [id number] Sex: M : 2000 Age: 19y None.SOCIAL [...] 10.4) 3 Clinical Report - Physicians/Mid Levels [facility] Emergency Department [address] [place] [address] Phone #: ext- [phone] 09/04/2019 21:24 Patient: [...] Male GFR Interprentation 20-49 yrs >60 mL/min Snlhtu17-26 yrs >56 mL/min Normal 60- 69 yrs >49 mL/min Normal 70-79yrs>42 mL/min Normal 80 and above >35 mL/min Normal Female GFRInterpretation 20-39 yrs >60 mL/min Normal 40-49 yrs >58 mL/minNormal 50-59 yrs >51 mL/min Normal 60-69 yrs >45 mL/min Svyevb44-43 yrs >39 mL/min Normal 80 and above >32 mL/min NormalLipase: (HARIKA: 09/04/2019 21:58) ( MsgRcvd 09/04/2019 22:45) [...] PROCEDURAL CONTROL VALID KIT LOT # _[id number] 09/04/19.222.DW . KIT EXP DATE _83-04-10 21/18/20.2219.DW .The Influenza A utilizing an isothermal nucleic acid amplification technology for thequalitativedetection of influenza A and B viral RNA.Negative results do not preclude influenza virus infection and shouldnot beused as the sole basis for diagnosis, treatment or other patient managementdecisions. 4 Clinical Report - Physicians/Mid Levels [facility] Emergency Department [address] [place] [address] Phone #: ext- [phone] 09/04/2019 21:24 Patient: ROBIN PERKINS Sex: M : 2000 Age: 19y Rapid Strep Screen: (HARIKA: 09/04/2019 21:33) ( MsgRcvd 09/04/2019 22:14) Final results Test Result Flag Units (Reference) RAPID STREP NEGATIVE (NORMAL: NEGAT RAPID STREP REENTER NEGATIVE (NORMAL: NEGAT { PROCEDURAL CONTROL VALID ){ KIT LOT # [id number] ){ KIT EXP DATE 08-21-20 )The Strep [...] PANEL _RESPIRATORY PANEL, FLU4_ [place] [address] CLIA# [id number] SEE SCANNED REPORT.PROGRESS AND PROCEDURESCourse of Care: 22:02 09/04/19. case discussed w Public HealthRoseanna, who agrees w Covid-19 testing;we will also add Flu and Flu panel testing 00:31 09/05/19. workup all in and reviewed and nml except for slight elevation of lactic, Flu tests neg, rapid strep neg., Flu Panel from [facility] is also negative, CXR pending, COVID-19 testing pending, public health notified, pt doing much better 01:17 09/05/19. CXR reviewed and nml; pt will be d/c back to [facility] under isolation until COVID-19 test result is [...] hypotension.INSTRUCTIONS 5 Clinical Report - Physicians/Mid Levels [facility] Emergency Department [address] [place] [address] Phone #: ext- [phone] 09/04/2019 21:24 Patient: [...] not smoke. (PLEASE STAY IN ISOLATION PER [place] [facility] UNTIL RESULTS OF COVI-19 TEST ARE [...] Refills: 0. Substit ution permitted. Pharmacy - [facility] [address] [facility] ; [place] [address]. . Follow-up: Return to the emergency department [...] to plan of care.(Electronically signed by Joseph Miguel M.D. 09/05/2019 01:53) Name Value Range Interpretation Code Description Data Liberty rce(s) Supporting Document(s) ID Date Data Source [id number] 09/04/2019 09:32:00 PM EDT [facility] Addenda for ROBIN PERKINS Leeanna VisitID: [id number] Date: 7:00Notified patient that his Covid-19 test came back negative.(Electronically signed by Geneva Araujo RN - 09/10/2019 7:00)09/10/2019 9:34Lab results reviewed.COVID-19, SARS-CoV-2 NOT DETECTED. [facility]. Patient previously notified ofnegative results by eGneva Araujo RN.(Electronically signed by Rosana Nguyễn RN - 09/10/2019 9:34) Name Value Range Interpretation Code Description Data Liberty rce(s) Supporting Document(s) ID Date Data Source [id number] 09/05/2019 09:12:00 AM EDT [facility] [address] [place] [id number] PHONE: [phone] FAX: [phone] Name .................. : MADDIE Durán Acct Number.................. : [id number] ROOM. ................. : TR-05 MR Number ................... : [id number] Stay type ............. : E/R Discharge Date......... ... : 09/05/19 Admit Date ......... : 09/04/19 Admit Phys .................... : TURRIN EULALIA Date of ....... : 2000 Family Phys ................... : UNKNOWN CO Phone .................. : [phone] Age ................................ : 19 Film# .................. .:[id number] Sex ................................. : M Unsigned transcriptions are preliminary reports and do not represent a medical or legal document CHEST 2 VIEWS [id number] COMPLETE:09/05/19 02:37 DLA [id number] Reason(s): Cough CHEST X-RAY: 2-VIEWS INDICATION: Cough. FINDINGS: The cardiac and mediastinal silhouettes appear normal and the lungs are clear. The bones and soft tissues are normal. The upper abdomen is unremarkable. IMPRESSION: No acute disease identifiable. Electronically Reviewed and Signed By Jose Juan Carter M.D. , 09/05/19 09:12, [place] Transcribe Initials: MANOLO , Transcribe Date: 09/05/19 07:02, Dictation Date: Copy for: [place] [facility] [place] for: 710 MED REC DISCHARGED Page 1 of 1 Name Value Range Interpretation Code Description Data [facility] rce(s) Supporting Document(s) ID Date Data Source [id number] 09/04/2019 10:09:00 PM EDT [facility] Name Value Range Interpretation Code Description [facility](s) SARS CORONAVIRUS 2 RNA [facility] This lab was ordered by [facility] felix and reported by [facility]. ID Date Data Source [id number] 09/10/2019 06:41:00 AM EDT [facility] Name Value Range Interpretation Code Description Data [facility] rce(s) Supporting Document(s) SARS-CoV-2, MICHELLE Not Detected Not Detected [facility] Testing was performed using the juana(R) SARS-CoV-2 test.This test was developed and its performance characteristics determinedby [email or web address]. This test has not been FDA cleared [...] or revoked sooner. ID Date Data Source [id number] 09/05/2019 12:15:00 AM EDT [facility] 69THIS TESTS FOR HUMAN CORONAVIR US NOT COVID-19FilmArray Respiratory Panel is a Multiplexed NAAT-PCR testNORMAL VALUE FOR ALL 20 PATHOGENS IS "NOT DETECTED".The [facility] RP panel detects Influenza A H1,H3 [id number] H1 viruses,Influenza B virus, Respiratory syncytialvirus, Human [...] rce(s) Supporting Document(s) ID Date Data Source [id number] 09/05/2019 01:08:00 AM EDT [facility] Name Value Range Interpretation Code Description Data [facility](s) Supporting Document(s) FLU PANEL [facility] _RESPIRATORY PANEL, FLU4_ TEST P ERFORMED AT [address] [address] CLIA# [id number] SEE SCANNED REPORT ID Date Data Source [id number] 09/10/2019 07:18:00 AM EDT [facility] Name Value Range Interpretation Code Description Data [facility](s) Supporting Document(s) Bacteria identified in Blood by Culture [facility] NO GROWTH AFTER 5 DAYS ID Date Data Source [id number] 09/11/2019 04:06:00 AM EDT [facility] Name Value Range Interpretation Code Description Data [facility](s) Supporting Document(s) CULTURE BLOOD [facility] _CULTURE BLOOD_ TEST PERFORM ED AT [address] [address] CLIA# [id number] SEE SCANNED REPORT{ PRELIM ID Date Data Source [id number] 09/04/2019 10:45:00 PM EDT [facility] Name Value Range Interpretation Code Description Data [facility](s) Supporting Document(s) Lipase [Enzymatic activity/volume] in Serum or Plasma 20 U/L 13 - 60 [facility] ID Date Data Source [id number] 09/04/2019 10:44:00 PM EDT [facility] Name Value Range Interpretation Code Description Data [facility](s) Supporting Document(s) COMPREHENSIVE METABOLIC PANEL [facility] COMPREHENSIVE METABOLIC PANEL Sodium [Moles/volume] in Serum or Plasma 139 mEq/L 134 - 153 [facility] Potassium [Moles/volume] in Serum or Plasma 4.1 mEq/L 3.6 - 5.0 [facility] Chloride [Moles/volume] in Serum or Plasma 101 mEq/L 98 - 107 [facility] Carbon dioxide, total [Moles/volume] in Serum or Plasma 24 MEQ/L 22 - 30 [facility] Glucose [Mass/volume] in Serum or Plasma 122 MG/DL 65 - 110 H [facility] BUN 15 MG/DL 7 - 21 [facility] Creatinine [Mass/volume] in Serum or Plasma 1.1 MG/DL 0.7 - 1.5 [facility] BUN/CREAT 14 8 - 27 [facility] Protein [Mass/volume] in Serum or Plasma 8.1 G/DL 6.3 - 8.2 [facility] Albumin [Mass/volume] in Serum or Plasma 5.0 G/DL 3.9 - 5.0 [facility] Globulin [Mass/volume] in Serum by calculation 3.1 GM/DL 2.4 - 3.2 [facility] A/G RATIO 1.6 0.8 - 2.0 [facility] Calcium [Mass/volume] in Serum or Plasma 9.7 MG/DL 8.4 - 10.2 [facility] Bilirubin.total [Mass/volume] in Serum or Plasma 0.8 MG/DL 0.2 - 1.3 [facility] Alkaline phosphatase [Enzymatic activity/volume] in Serum or Plasma 64 U/L 38 - 126 [facility] Aspartate aminotransferase [Enzymatic activity/volume] in Serum or Plasma 25 U/L 5 - 40 [facility] Alanine aminotransferase [Enzymatic activity/volume] in Seru m or Plasma 26 U/L 7 - 56 [facility] Anion gap 3 in Serum or Plasma 14.0 mmol/L 8.0 - 16.0 [facility] AGE 19 yrs [facility] NON-AA GFR >60 mL/min [facility] AFR AMER GFR >60 mL/min [facility] Male GFR In terprentation 20-49 [...] >32 mL/min Normal ID Date Data Source [id number] 09/04/2019 10:34:00 PM T [facility] Name Value Range Interpretation Code Description Data [facility](s) Supporting Document(s) Lactate [Moles/volume] in Serum or Plasma 2.7 MMOL/L 0.2 - 2.2 H [facility] ID Date Data Source [id number] 09/04/2019 10:22:00 PM EDT [facility] Name Value Range Interpretation Code Description Data [facility](s) Supporting Document(s) CBC W/AUTOMATED DIFF [facility] COMPLETE BLOOD COUNT Leukocytes [#/volume] in Blood by Automated count 10.9 10^3/uL 4.2 - 11.0 [facility] Erythrocytes [#/volume] in Blood by Automated count 5.43 10^6/uL 4. 50 - 6.30 [facility] Hemoglobin [Mass/volume] in Blood 16.7 g/dL 14.0 - 16.0 H [facility] Hematocrit [Volume Fraction] of Blood by Automated count 49.6 % 4 1.0 - 51.0 [facility] Erythrocyte mean corpuscular volume [Entitic volume] by Auto mated count 91.3 fL 80.0 - 94.0 [facility] Erythrocyte mean corpuscular hemoglobin [Entitic mass] by Automated count 30.8 pg 27.0 - 34.0 [facility] Erythrocyte mean corpuscular hemoglobin concentration [Mass/volume] by Automated count 33.7 g/dL 31.0 - 36.0 [facility] Erythrocyte distribution width [Ratio] by Automated count 11.9 % 11.5 - 14.8 [facility] Platelets [#/volume] in Blood by Automated count 254 10^3/uL 150 - 45 0 [facility] Platelet mean volume [Entitic volume] in Blood by Automated count 10.1 fL 7.4 - 10.4 [facility] Neutrophils/100 leukocytes in Blood by Automated count 92.2 % 37. 0 - 80.0 H [facility] Lymphocytes/100 leukocytes in Blood by Manual count 2.9 % 25.0 - 40.0 L [facility] Monocytes/100 leukocytes in Blood by Automated count 4.4 % 3.0 - 8.0 [facility] Eosinophils/100 leukocytes in Blood by Automated count 0.1 % 0.0 - 7.0 [facility] Basophils/100 leukocytes in Blood by Automated count 0.2 % 0.0 - 2.0 [facility] %IG 0.2 % 0.0 - 0.0 [facility] %NRBC 0.0 % 0.0 - 0.0 [facility] [place] [facility] Neutrophils [#/volume] in Blood by Automated count 10.03 10^3/uL 2. 00 - 6.90 H [facility] Lymphocytes [#/volume] in Blood by Automated count 0.31 10^3/uL 0.60 - 3.40 L [facility] Monocytes [#/volume] in Blood by Automated count 0.48 10^3/uL 0.00 - 0.90 [facility] Eosinophils [#/volume] in Blood by Automated count 0.01 10^3/uL 0.00 - 0.70 [facility] Basophils [#/volume] in Blood by Automated count 0.02 10^3/uL 0.00 - 0.20 [facility] #IG 0.02 10^3/uL 0.00 - 0.10 [facility]ital #NRBC 0.00 10^3/uL 0.00 - 0.00 [facility] MANUAL DIFF NOT INDICATED [facility] RBC MORPH NOT INDICATED [facility] ID Date Data Source [id number] 09/04/2019 10:21:00 PM EDT [facility] Name Value Range Interpretation Code Description Data [facility] r[facility](s) Supporting Document(s) Influenza virus A Ag [Presence] in Nasopharynx by [facility] y NEGATIVE NORMAL: NEGATIVE [facility] Influenza virus B Ag [Presence] in Nasopharynx by [facility] y NEGATIVE NORMAL: NEGATIVE [facility] NEGATIVENEGATIVE PROCEDURAL CO NTROL VALID KIT LOT # _[id number] 09/04/19.DW . KIT EXP DATE _50-02-06 09/04/19.DW .The Influenza A & B assay is a rapid molecular in vitro diagnostic testutilizing an isothermal nucleic acid amplification technology for thequalitative detection of influenza A and B viral RNA.Negative results do not preclude influenza virus infection and should not beused as the sole basis for diagnosis, treatment or other patient managementdecisions. ID Date Data Source [id number] 09/04/2019 10:13:00 PM EDT [facility] Name Value Range Interpretation Code Description Data [facility] Supporting Document(s) RAPID STREP NEGATIVE NORMAL: NEGATIVE [facility] RAPID STREP REENTER NEGATIVE NORMAL: NEGATIVE [facility] { PROCEDURAL CONTROL VALID ){ KIT LOT # [id number] ){ KIT EXP DATE 08-21-20 )The Strep [...]
[2020-08-05 09:19] LABS: INR 1.07; PROTHROMBIN TIME 14.1 SECONDS (12.5-14.3)
[2020-08-05 09:46] LABS: ALT/SGPT 32 U/L (12-78); BILIRUBIN,DIRECT 0.2 MG/DL (0.0-0.2); BILIRUBIN,TOTAL 0.6 MG/DL (0.2-1.0); BLOOD UREA NITROGEN 13 MG/DL (7-18); CALCIUM LEVEL 8.8 MG/DL (8.5-10.1); CARBON DIOXIDE LEVEL 26 MEQ/L (21-32); CHLORIDE LEVEL 108 MEQ/L (98-107); CK-MB VALUE MASS 4.5 NG/ML (<3.6); CPK CREATINE PHOSPHOKINASE 471 U/L (39-308); CREATININE FOR GFR 1.13 MG/DL (0.70-1.30); GLOMERULAR FILTRATION RATE > 60.0 (>60); GLUCOSE, FASTING 97 MG/DL (70-100); MB/CK RELATIVE INDEX 0.96 (< OR =4); POTASSIUM SERUM 3.7 MEQ/L (3.5-5.1); SODIUM LEVEL 141 MEQ/L (136-145); TOTAL PROTEIN 6.7 GM/DL (6.4-8.2); TROPONIN I < 0.02 NG/ML (< 0.10)
[2020-08-05 10:05] LABS: RSV AMPLIFICATION NEGATIVE (NEGATIVE)
[2020-08-05] MEDS ORDERED: KETOROLAC 30 MG/ML 1ML VIAL IV ONE (10:15)
[2020-08-05 10:30] LABS: ERYTHROCYTE SEDIMENTATION RATE 1 mm/hr (0-15)
[2020-08-05] MEDS ORDERED: PROV108A INH (10:45)
[2020-08-05] MEDS ORDERED: SUCR1TA PO (10:45)
[2020-08-05] MEDS ORDERED: PRED20TA PO (10:45)
[2020-08-05 11:00] VITALS: BP 104/59
--- NOTE | 2020-08-07 08:05 | ECGEPIP ---
[facility] - ED Test Date: 2020-08-05 Pat Name: ROBIN PERKINS Department: Room: - Gender: Male Physiotherapy Aide: NOA : 2000 Requested By: TAWNY Wadsworth Order Number: [id number] Reading MD: Kavya Chand Measurements Intervals [place] Rate: 67 P: 59 MT: 154 QRS: 78 QRSD: 88 T: 41 QT: 360 QTc: 380 Interpretive Statements Normal sinus rhythm with sinus arrhythmia early repolarization No prior Electronically Signed on 08-07-2020 8:04:51 EST by Kavya Chand
== END 2020-08-05 11:02 | disposition home or self-care (01) ==
LOC: M ED 08:22
DX: R07.89 Other chest pain (principal); F17.200 Nicotine dependence, unspecified, uncomplicated

== ENCOUNTER → 2020-09-08 | Outpatient (CLI) | payer OTHER ==
[~2020-09-08] MED LIST changes: +MELO15TA28 PO; +PRED20TA PO; +PROV108A INH; +SUCR1TA PO
--- NOTE | 2020-09-09 10:41 | ECHO ---
DATE OF PROCEDURE: 09/08/2020 Age: 20 Gender: Male Height: 183 cm Weight: 92 kg REFERRING PHYSICIAN: Gisell Lindsey PA-C INDICATION: Angina. MEASUREMENTS: IVS 1.0 cm LV 5.2 cm LVPW 0.8 cm LA 4.5 cm Aorta 2.7 cm RV 3.5 cm IVC 1.8 cm Mitral E wave velocity 74 Mitral A wave 54 E prime septal 11.6 E prime lateral 16.4 FINDINGS: This study is of good technical quality. The patient is in sinus rhythm. Normal LV size with normal LV systolic function, estimated LVEF approximately 65%. Right ventricle has also normal size and systolic function. Both atria appear normal. All four cardiac valves were reasonably well seen and appear normal. No pericardial effusion is noted. Inferior vena cava is of normal size and appropriately collapses with inspiration indicative of normal central venous pressure. The aortic root, aortic arch, and visualized segment of abdominal aorta all appear normal. Doppler interrogation reveals normal function of aortic valve. There is trace mitral and mild tricuspid insufficiency. Calculated pulmonary artery pressure is approximately 25 mmHg corresponding to normal values. Trace pulmonic insufficiency is also seen. Mitral inflow pattern and tissue Doppler imaging of the mitral annulus reveal normal diastolic function. CONCLUSIONS: 1. Study is of good technical quality, underlying sinus rhythm. 2. Normal left ventricle (LV) size, systolic and diastolic function. 3. Normal aortic valve. 4. Trace mitral insufficiency, mild tricuspid insufficiency, trace pulmonic insufficiency. 5. Normal central venous pressure and normal pulmonary artery pressure. [facility]
== END ==
LOC: M CARPUL 08:33
PROVIDERS: ATTEND Physician Assistant
DX: R07.89 Other chest pain (principal)

== ENCOUNTER 2022-04-22 00:23 | Emergency (ER) | payer BC, OTHER ==
[~2022-04-22] VITALS: Ht 182.9 cm; Wt 99.2 kg
[~2022-04-22 00:23] MED LIST changes: +ALBU6.7H6 INH; -PROV108A INH
[2022-04-22 01:34] LABS: BASO % 0.4 % (0.0-1.0); EOS # 0.1 10^3/uL (0.0-0.5); EOS % 1.7 % (0.0-3.0); HEMATOCRIT 42.2 % (42.0-52.0); HEMOGLOBIN 14.8 g/dl (13.5-17.5); LYMPH # 1.4 10^3/uL (1.5-5.0); LYMPH % 16.5 % (24.0-44.0); MEAN CORPUSCULAR HEMOGLOBIN 31.2 pg (27.0-33.0); MEAN CORPUSCULAR HGB CONC 35.1 g/dl (32.0-36.5); MEAN CORPUSCULAR VOLUME 88.8 fl (80.0-96.0); MONO # 0.7 10^3/uL (0.0-0.8); MONO % 8.7 % (2.0-8.0); NEUTROPHILS # 6.1 10^3/uL (1.5-8.5); NEUTROPHILS % 72.5 % (36.0-66.0); PLATELET COUNT, AUTOMATED 263 10^3/uL (150-450); RED BLOOD COUNT 4.75 10^6/uL (4.30-6.10); WHITE BLOOD COUNT 8.4 10^3/uL (4.0-10.0)
[2022-04-22 02:04] LABS: BLOOD UREA NITROGEN 12 MG/DL (7-18); CALCIUM LEVEL 9.2 MG/DL (8.5-10.1); CARBON DIOXIDE LEVEL 25 MEQ/L (21-32); CHLORIDE LEVEL 109 MEQ/L (98-107); CREATININE FOR GFR 1.06 MG/DL (0.70-1.30); GLOMERULAR FILTRATION RATE > 60.0 (>60); GLUCOSE, FASTING 110 MG/DL (70-100); POTASSIUM SERUM 3.3 MEQ/L (3.5-5.1); SODIUM LEVEL 142 MEQ/L (136-145)
[2022-04-22 02:13] LABS: CK-MB VALUE MASS < 1.0 NG/ML (<3.6); CPK CREATINE PHOSPHOKINASE 136 U/L (39-308); MB/CK RELATIVE INDEX 0.74 (< OR =4)
[2022-04-22 05:45] VITALS: BP 126/73
== END 2022-04-22 06:39 | disposition home or self-care (01) ==
LOC: M ED 00:23
DX: F41.0 Panic disorder [episodic paroxysmal anxiety] (principal); F17.290 Nicotine dependence, other tobacco product, uncomplicated; R00.0 Tachycardia, unspecified

== ENCOUNTER → 2022-06-01 | Outpatient (CLI) | payer OTHER | LOC: M PLAIMG 14:59 | DX: M16.0 Bilateral primary osteoarthritis of hip (principal); M25.551 Pain in right hip ==